=== PATIENT | male | born 1960 | race Caucasian/White ===

== ENCOUNTER → 2020-10-29 14:45 | Outpatient (BNVA) | payer BC, SELFPAY | PROVIDERS: Referring Provider Student in an Organized Health Care Education/Training Program; Visit Provider Orthopaedic Surgery | DX: M25.519 Pain in unspecified shoulder (principal); M75.101 Unspecified rotator cuff tear or rupture of right shoulder, not specified as traumatic; M12.811 Other specific arthropathies, not elsewhere classified, right shoulder | CPT/HCPCS: 73030 ==

== ENCOUNTER 2021-03-11 14:28 | Inpatient (IN) | payer BC, SELFPAY ==
[2021-03-11] VITALS (15 sets, daily range): BP systolic 129–180; BP diastolic 65–114; PULSE 38–72; RESP 14–20; TEMP 36.6; O2SAT 98–100; BMI 29.6
--- NOTE | 2021-03-11 14:38 | XR_ITS ---
WS: [id number] PORTABLE CHEST HISTORY: bradycardia, syncope COMPARISON: None available. Pacer pads over the mid LEFT lung. Mild hyperexpansion. No pneumonia. Normal vasculature. No pleural effusion or pneumothorax. Cardiac size: Mildly enlarged cardiac silhouette. Mediastinum/Aorta: Mild atherosclerosis aorta. Lytic changes involving the distal RIGHT clavicle. There is also abnormal appearance of the humeral h ead on the RIGHT. Subchondral cystic changes with loss of the normal cartilage. These findings were p reviously described on 10/29/2020. XR/XR chest 1V portable [id number] IMPRESSION: 1. No acute cardiopulmonary disease. 2. Again noted is a lytic destructive process involving the distal RIGHT clavi joel and the RIGHT humeral head. This has been previously described and may have improved since the prior study of 10/29/2020.
--- NOTE | 2021-03-11 14:39 | ECG_ITS ---
[facility] Test Date: 2021-03-11 Pat Name: Kyree Wilkerson Department: Room: Gender: Male Orientation And Mobility Specialist: : 1960 Requested By: Neil Francois Order Number: [id number] Hanley MD: Mercy Jane M.D. Measurements Intervals [place] Rate: 70 P: SD: QRS: 115 QRSD: 170 T: -63 QT: 492 QTc: 532 Interpretive Statements Sinus rhythm with a first-degree AV block RIGHT AXIS DEVIATION [QRS AXIS > 100] LEFT BUNDLE BRANCH BLOCK [120+ ms QRS DURATION, 80+ ms Q/S IN V1/V2, 85+ ms R IN I/aVL/V5/V6] No previous ECG available for comparison Electronically Signed On 03-13-2021 0:08:28 AUTO BRAKE TECHNICIAN by Mercy Jane M.D. [id number]
--- NOTE | 2021-03-11 14:55 | ED_ITS ---
HPI - Syncope General: Chief Complaint: ER Hold Stated Complaint: LOW HEART RATE, PASSING OUT Time Seen by Provider: 03/11/21 14:55 History of Present Illness: HPI narrative: Mr. Wilkerson is a 60-year-old gentleman with significant past medical history of hypertension, hyperlipidemia, atrial fibrillation, CAD status post PCI on chronic anticoagulation who presents emergency department due to syncope and low heart rate. He reportedly was well controlled at his baseline health until 02/19. He underwent cardiac catheterization in [place] as part of preoperative evaluation with planned maze, ASD repair, and aortic valve replacement planned to be done in [facility]. Since PCI he has had recurrent episodes of syncope and difficulty controlling his heart rate. Other than adding Plavix he did not have any additional medications changed. He is on digoxin and took 1 or 2 extra over the past week or so. Intensity of symptoms when present is m oderate to severe. Course has persisted. Denies known provoking factors. No other specific changes in health, exacerbating, relieving factors identified. Onset (ago): week(s) Description of event: other Prodromal symptoms: lightheaded Injuries sustained associated with event: none Associated symptoms: Reports lightheadedness and short of breath History: history of CAD and other Review of Systems General: Reports: 10 or more systems reviewed and unremarkable except in HPI and below Card: Reports: lightheadedness [facility] ED PFSH: Medical History (Updated 03/11/21 @ 21:12 by Solo Harding MD) Afib Anxiety Aortic aneurysm Gout Hyperlipidemia Hypertension Migraine Surgical History History of arthroscopic knee surgery History of cardiac radiofrequency ablation History of open heart surgery History of PTCA Family History (Updated 03/11/21 @ 21:11 by Solo Harding MD) Mother Hypertension Diabetes Atrial fibrillation Social History (Updated 03/11/21 @ 21:11 by Solo Harding MD) Smoking and tobacco status: never smoked Alcohol intake: current Alcohol intake frequency: few times a month Physical Exam Const: COMMON NORMALS: alert GENERAL APPEARANCE: cooperative and well developed HENMT: COMMON NORMALS: normocephalic and atraumatic HEAD & SCALP: normocephalic and atraumatic THROAT: posterior oropharynx normal Eye: COMMON NORMALS: conjunctivae normal CONJUNCTIVA: Yes conjunctivae normal SCLERA: sclerae normal Neck/C-Spine: COMMON NORMALS: supple GENERAL: Yes trachea midline Resp: COMMON NORMALS: normal respiratory effort EFFORT & INSPECTION: Yes able to speak in complete sentences Cardio: RATE: bradycardic RHYTHM: abnormal rhythm irregularly irregular OTHER: No peripheral edema, normal peripheral perfusion GI: COMMON NORMALS: Soft to palpation PALPATION: Yes Soft to palpation and No Tenderness to palpation present (GI) PERCUSSION: normal to percussion Extremity: GENERAL: Yes normal exam except as noted and No edema Neuro: COMMON NORMALS: moves all extremities SENSORIUM/ORIENTATION: Yes alert and No Orientation impaired OTHER: No focal neurologic deficits Psych: COMMON NORMALS: mental status grossly normal and Normal thought process present THOUGHT PROCESS: Normal thought process present Course ED course: - Patient was seen and evaluated by me at bedside - Patient placed on cardiac monitors, IV access obtained - Initial evaluation notable for bradycardia with adequate blood pressure. - Labs notable for no leukocytosis. Metabolic panel with mild evidence of dehydration. Delta troponin negative. Free T4 normal. Digoxin level within normal limits. - Imaging notable for no acute cardiopulmonary process, lytic lesion again noted - Given high degree of medical complexity cardiology was consulted for assistance in management and evaluated patient in the emergency department. - Upon serial reexamination after treatment the patient was similar to mildly improved - Based on patient history, evaluation, labs, and imaging as interpreted the most likely cause of the patient's condition is symptomatic bradycardia - The results of ED evaluation were discussed with the patient including plan for admission due to requirement for level of care not available if discharged to prevent significant worsening/deterioration. - Hospitalist service contacted and agreed admit patient - Patient was admitted without further deterioration or significant events. Note: Click bubbles or prepopulated staton in note writing are used for assistance with data collection and billing and are inherently more limited than narrative and other text portions of this note. Please use narrative for additional clinical history and defer to narrative/free test for any case of contradictory information. If information appears in only free text or click bubble it should be considered present or absent as reported. Please contact note telegraphic typewriter operator for clarifications of clinical information or contradictory information. MDM is a brief summary, contradictory or erroneous seeming information should be clarified and full note should be reviewed. Vital Signs: Vital signs: Vital Signs Temperature 98.4 F 03/12/21 16:47 Pulse Rate 68 03/12/21 16:47 Respiratory Rate 16 03/12/21 16:47 Blood Pressure 163/91 03/12/21 16:47 Pulse Oximetry 99 03/12/21 16:47 MDM - Syncope MDM Narrative Medical decision making narrative: 60-year-old gentleman with complex past cardiac history and new onset symptomatic bradycardia resulting in recurrent syncope after a cardiac cath and stent deployment on 02/19. Patient found to be bradycardiac with maintained blood pressure in the emergency department. Heart rates varied as low as mid 20s and he did have some multi second sinus pauses. Cardiology evaluated the patient in the emergency department, no acute intervention recommended other than holding medications and intervention would be indicated if patient conditions worsens. There is no obvious etiology based on laboratory studies for the patient's condition. Patient admitted for further definitive management and reevaluation. Medical Records Attestation: I reviewed the patient's medical records. Lab Data Attestation: I reviewed the patient's lab results. Result diagrams: 03/12/21 03:42 03/12/21 03:42 Labs: Radiology Impressions Chest X-Ray 03/11/21 14:38 IMPRESSION: 1. No acute cardiopulmonary disease. 2. 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 This has been previously described and may have improved since the prior study of 10/29/2020. Laboratory Results WBC 7.1 10^3/uL (4.0-10.0) 03/11/21 15:00 RBC 5.11 10^6/uL (4.1-5.3) 03/11/21 15:00 Hgb 13.3 g/dL (11.7-16.6) 03/11/21 15:00 Hct 43.5 % (42.0-52.0) 03/11/21 15:00 MCV 85.1 fl (80-94) 03/11/21 15:00 MCH 26.0 pg (28.0-34.0) L 03/11/21 15:00 MCHC 30.6 g/dL (30.0-36.0) 03/11/21 15:00 RDW 17.0 % (12.1-15.1) H 03/11/21 15:00 Plt Count 233 10^3/cmm (130-400) 03/11/21 15:00 MPV 9.2 fL (7.4-10.4) 03/11/21 15:00 Neut % (Auto) 73.0 % 03/11/21 15:00 Lymph % (Auto) 16.1 % 03/11/21 15:00 Schleicher % (Auto) 9.1 % 03/11/21 15:00 Eos % (Auto) 0.4 % 03/11/21 15:00 Baso % (Auto) 0.4 % 03/11/21 15:00 Neut # (Auto) 5.21 10^3/uL (1.8-7.7) 03/11/21 15:00 Lymph # (Auto) 1.2 10^3/uL (0.8-4.8) 03/11/21 15:00 Schleicher # (Auto) 0.7 10^3/uL (0.2-0.9) 03/11/21 15:00 Eos # (Auto) 0.0 10^3/uL (0.0-0.8) 03/11/21 15:00 Baso # (Auto) 0.0 10^3/uL (0.0-0.1) 03/11/21 15:00 Nucleated RBC % (auto) 0 % 03/11/21 15:00 Nucleated RBCs # 0.0 /100WBC 03/11/21 15:00 PT 25.30 SECONDS (12.1-14.9) H 03/11/21 15:00 INR 2.24 (0.8-1.2) H 03/11/21 15:00 Sodium 133 mmol/L (136-145) L 03/11/21 15:00 Potassium 5.0 mmol/L (3.5-5.1) 03/11/21 15:00 Chloride 98 mmol/L (98-107) 03/11/21 15:00 Carbon Dioxide 21 mmol/L (22-29) L 03/11/21 15:00 Anion Gap 19.0 (5-19) 03/11/21 15:00 BUN 19 mg/dL (8-23) 03/11/21 15:00 Creatinine 1.4 mg/dL (0.7-1.2) H 03/11/21 15:00 GFR Calculation 51.7 mL/min (90-130) L 03/11/21 15:00 Glucose 109 mg/dL (65-115) 03/11/21 15:00 Calculated Osmolality 279 mOsm/kg (285-295) L 03/11/21 15:00 Calcium 8.8 mg/dL (8.5-10.5) 03/11/21 15:00 Magnesium 2.0 mg/dL (1.7-2.3) 03/11/21 15:00 Total Bilirubin 0.7 mg/dL (0.15-1.2) 03/11/21 15:00 AST 43 U/L (0-40) H 03/11/21 15:00 ALT 30 U/L (0-41) 03/11/21 15:00 Alkaline Phosphatase 108 IU/L (40-130) 03/11/21 15:00 Troponin T Baseline 23 ng/L (0-15) H 03/11/21 15:00 Troponin T 120 Minute 21.48 ng/L (0-15) H 03/11/21 17:05 Delta Troponin T -1.52 ABS# (0-10) L 03/11/21 17:05 Troponin T Hi Sens 6Hr 24.78 ng/L (0-15) H 03/11/21 20:38 Troponin T Hi Sens 6Hr Delta 1.78 ng/L (0-12) 03/11/21 20:38 Total Protein 7.2 g/dL (6.6-8.7) 03/11/21 15:00 Albumin 4.4 g/dL (3.5-5.2) 03/11/21 15:00 Globulin 2.8 g/dL (1.3-4.6) 03/11/21 15:00 TSH 4.67 uIU/mL (0.27-4.20) H 03/11/21 15:00 Free T4 1.38 ng/dL (0.82-1.77) 03/11/21 15:00 Digoxin 1.2 ng/mL (0.6-1.2) 03/11/21 15:00 EKG Data EKG 1: Interpretation: Twelve-lead EKG shows a regular rhythm at a rate of 70. TN interval not present. QRS duration 170. QTc 513. Right [place] deviation Interpretation: Ventricular or junctional rhythm. Bundle branch block. EKG 2: Attestation: I personally reviewed and interpreted this EKG as follows: EKG interpretation date: 03/11/21 EKG interpretation time: 15:25 Interpretation: Twelve-lead EKG shows a regular rhythm at a rate of 43. TN interval not present. QRS duration 122. QTc 437. Normal [place]. . Interpretation: Junctional versus ventricular rhythm. Bradycardia. EKG 3: Attestation: I personally reviewed and interpreted this EKG as follows: EKG interpretation date: 03/11/21 EKG interpretation time: 17:40 Interpretation: Twelve-lead EKG shows a regular rhythm at a rate of 37. TN interval not present. QRS duration 129. QTc 461. Normal [place]. Interpretation: Junctional versus ventricular rhythm. Bradycardia. Critical Care Time Critical Care Time: Critical Care Time: Yes Total Critical Care Time: 35 Attestation: Due to a high probability of clinically significant, possibly life threatening deterioration, the patient required my highest level of attention and preparedness to intervene emergently and I personally spent this critical care time directly and personally managing the patient. This critical care time included obtaining a history; examining the patient; pulse oximetry; ordering and review of laboratory and imaging studies; arranging urgent treatment with development of a management plan; evaluation of patient's response to treatment; frequent reassessment; and, discussions with other providers as applicable. It was exclusive of separately billable procedures. Discharge Plan Discharge Patient Disposition: Admitted As Inpatient Admit Provider: Solo Harding Clinical Impression: Symptomatic bradycardia, Syncope due to orthostatic hypotension Condition: Stable Discharge Diet: Usual diet Discharge Activity: Resume usual activity Coding Level of Care Code ED Machine Worker for Chg Fwd Exam Comprehensive
[2021-03-11 15:13] LABS: Basophils % 0.4 %; Eosinophils % 0.4 %; Hematocrit 43.5 % (42.0-52.0); Hemoglobin 13.3 g/dL (11.7-16.6); Lymphocytes # 1.2 10^3/uL (0.8-4.8); Lymphocytes % 16.1 %; Mean Corpuscular HGB Conc 30.6 g/dL (30.0-36.0); Mean Corpuscular Volume 85.1 fl (80-94); Mean Platelet Volume 9.2 fL (7.4-10.4); Monocytes # 0.7 10^3/uL (0.2-0.9); Monocytes % 9.1 %; Neutrophils # 5.21 10^3/uL (1.8-7.7); Nucleated Red Blood Cells % 0 %; Platelet Count 233 10^3/cmm (130-400); Red Blood Count 5.11 10^6/uL (4.1-5.3); White Blood Count 7.1 10^3/uL (4.0-10.0)
--- NOTE | 2021-03-11 15:31 | PC.NURSE ---
PATIENT ZOLL PADS ATTACHED AND CART BROUGHT INTO ROOM. PATIENT ON ZOLL AND MONITORING.
[2021-03-11 15:33] LABS: INR 2.24 (0.8-1.2)
[2021-03-11 15:39] LABS: Troponin(5th) Baseline 23 ng/L (0-15)
[2021-03-11 15:42] LABS: Digoxin 1.2 ng/mL (0.6-1.2)
[2021-03-11 15:48] LABS: Alanine Aminotransferase 30 U/L (0-41); Albumin Level 4.4 g/dL (3.5-5.2); Alkaline Phosphatase 108 IU/L (40-130); Aspartate Amino Transferase 43 U/L (0-40); Blood Urea Nitrogen 19 mg/dL (8-23); Calcium 8.8 mg/dL (8.5-10.5); Carbon Dioxide 21 mmol/L (22-29); Chloride 98 mmol/L (98-107); Globulin 2.8 g/dL (1.3-4.6); Glomerular Filtration Rate 51.7 mL/min (90-130); Glucose 109 mg/dL (65-115); Osmolality Calculated 279 mOsm/kg (285-295); Sodium 133 mmol/L (136-145); Thyroid Stimulating Hormone 4.67 uIU/mL (0.27-4.20); Total Bilirubin 0.7 mg/dL (0.15-1.2); Total Protein 7.2 g/dL (6.6-8.7)
[2021-03-11 16:51] LABS: Free T4 Free Thyroxine 1.38 ng/dL (0.82-1.77)
[2021-03-11] MEDS: morphine 4 mg/mL SDV 1 mL IVP (16:55)
[2021-03-11] MEDS: aspirin 81 mg Chew Tablet 324 MG PO (16:56)
--- NOTE | 2021-03-11 16:56 | ECG_ITS ---
[facility] Test Date: 2021-03-11 Pat Name: Kyree Wilkerson Department: Room: Gender: Male Building Associate: : 1960 Requested By: Neil Francois Order Number: [id number] Hanley MD: Ericka Mcdonald M.D. Measurements Intervals [place] Rate: 43 P: AR: QRS: -2 QRSD: 122 T: 124 QT: 493 QTc: 417 Interpretive Statements JUNCTIONAL RHYTHM MODERATE INTRAVENTRICULAR CONDUCTION DELAY [110+ ms QRS DURATION] ST DEVIATION AND MODERATE T-WAVE ABNORMALITY, CONSIDER ANTEROLATERAL ISCHEMIA [-0.1+ mV T-WAVE IN V3-V6] Compared to ECG 03/11/2021 14:45:17 Intraventricular conduction delay now present T-wave abnormality now present Possible ischemia now present Right-axis deviation no longer present Left bundle-branch block no longer present Electronically Signed On 03-11-2021 22:11:35 WIRE WRAPPING MACHINE OPERATOR by Ericka Mcdonald M.D. [id number]
[2021-03-11 17:48] LABS: Troponin 5 2HR 21.48 ng/L (0-15); Troponin 5 2HR Delta -1.52 ABS# (0-10)
[2021-03-11] MEDS: atropine 0.1 mg/mL Syr 10 mL 0.5 MG IVP (18:50)
--- NOTE | 2021-03-11 19:17 | P.CONIM_ITS ---
Providers/Reason For Consult Consulting Physician/Specialty*: KATHY Jane MD/cardiology Reason for Consult*: Patient with recurrent episodes of near syncope/bradycardia/atrial fibrillation Requesting Physician: Dr. Neil Francois History of Present Illness History of Present Illness Kyree Wilkerson is a 60 year old male, presented to the emergency room today with complaints of recurrent episodes of near syncope. Patient has a history of ather osclerotic heart disease, chronic atrial fibrillation, ASD repair and aortic valve stenosis. This patient has a history of chronic intermittent atrial fibrillation. He is awaiting surgery for his ASD closure, possible aortic valve replacement and maze procedure at the [facility] in [place]. As a preoperative work-up, he had a cardiac catheterization by Dr. Kyree Mcdonnell at the [facility]. He apparently had a PCI with stenting in one of the arteries. Details are not available. Because of the stent placement, the surgical intervention was postponed-according to the patient and his family. He had a 2 radiofrequency ablation for the atrial fibrillation. He also had a total of 4 electrical cardioversion for symptomatic arrhythmia. The most recent cardioversion was done on 07 February last year. Following the cardioversion, he was placed on amiodarone. He also been taking long-acting metoprolol 50 mg twice daily and digoxin on a as needed basis. He also was given metoprolol tartrate to be taken on a as needed basis for uncontrolled heart rate by his primary care provider. The cervical cardioversion was unsuccessful. He has been having episodes of palpitations with a heart rate in the 150s and 160s. For that reason, he was taking digoxin and the short-acting metoprolol on a as needed basis. He denies any chest pain or chest tightness. No unusual shortness of breath. He had a PCI's in the past. These details are not available. Patient was found to have heart rate in the 20s at home. He is a mail delivery supervisor. He had an several episodes of near syncope in his vehicle. According to him, he will pull out and parked the car while having dizziness or near syncopal spells. Because of the recurrent episodes, he was brought to the emergency room. He never had any complete loss of consciousness. He never had similar episodes in the past. The first episode of near syncope happened around 1030 this morning. Patient has a history of high blood pressure and dyslipidemia. Also history of BPH. No history for any CVA or peripheral artery disease. No history for diabetes. No bleeding disorders. He is on long-term oral anticoagulation with the Coumadin. Review of Systems Narrative: CONSTITUTIONAL: No fever or chills. EYES: No blurring of vision or other visual disturbances lately. ENT: No hoarseness of voice, auditory disturbances or sore throat. CARDIOVASCULAR: As mentioned above. RESPIRATORY: No significant cough. GASTROINTESTINAL: No hematemesis or melena. GENITOURINARY: No dysuria or hematuria. INTEGUMENTARY: No skin rashes or history of skin cancer. NEURO: Several episodes of near syncope as mentioned above. PSYCHIATRIC: No history of psychosis or major depression. HEMATOLOGIC: No bleeding disorders or significant anemia. ENDOCRINE: No history of polyuria or polydipsia. MUSCULOSKELETAL: No recent joint pain or swelling. ALLERGY/IMMUNOLOGY: As mentioned above. Medications/Allergies Home Medications Medication Instructions Recorded Confirmed Last Taken Type allopurinol 300 mg tablet 300 mg PO BEDTIME 10/29/20 03/12/21 Unknown History alprazolam 0.25 mg tablet 0.25 mg PO BID PRN 10/29/20 03/12/21 Unknown History ascorbate calcium (vitamin C) 500 500 mg PO QAM 10/29/20 03/12/21 Unknown History mg tablet lansoprazole 15 mg capsule,delayed 15 mg PO DAILY 10/29/20 03/12/21 Unknown History release metoprolol succinate 100 mg 50 mg PO BID 10/29/20 03/12/21 Unknown History tablet,extended release 24 hr metoprolol tartrate 50 mg tablet 50 mg PO BID PRN 10/29/20 03/12/21 Unknown History rosuvastatin 20 mg tablet (Crestor) 20 mg PO BEDTIME 10/29/20 03/12/21 Unknown History tamsulosin 0.4 mg capsule 0.4 mg PO BEDTIME 10/29/20 03/12/21 Unknown History warfarin 5 mg tablet See Rx Instructions .ROUTE .COMPLEX 10/29/20 03/12/21 Un known History Fish Oil 1 cap PO QAM 03/12/21 03/12/21 Unknown History Glucosamine 1 cap PO QAM 03/12/21 03/12/21 Unknown History Vitamin B-12 1 tab PO QAM 03/12/21 03/12/21 Unknown History amiodarone 200 mg tablet 200 mg PO BEDTIME 03/12/21 03/12/21 Unknown History aspirin 81 mg tablet,delayed 81 mg PO QAM 03/12/21 03/12/21 Unknown History release clopidogrel 75 mg tablet 75 mg PO QAM 03/12/21 03/12/21 Unknown History coenzyme Q10 100 mg capsule 100 mg PO QAM 03/12/21 03/12/21 Unknown History (CoQ-10) losartan 50 mg tablet 25 mg PO BEDTIME 03/12/21 03/12/21 Unknown History magnesium 1 tab PO QAM 03/12/21 03/12/21 Unknown History meloxicam 15 mg tablet 15 mg PO QAM 03/12/21 03/12/21 Unknown History multivitamin 1 tab PO QAM 03/12/21 03/12/21 Unknown History potassium gluconate 595 mg (99 mg) 595 mg PO QAM 03/12/21 03/12/21 Unknown History tablet turmeric 400 mg capsule 400 mg PO QAM 03/12/21 03/12/21 Unknown History zinc 50 mg tablet 50 mg PO QAM 03/12/21 03/12/21 Unknown History Allergies Allergy/AdvReac Type Severity Reaction Status Date / Time No Known Allergies Allergy Verified 03/12/21 08:59 PFSH Acute PFSH: Medical History (Updated 03/11/21 @ 21:12 by Solo Harding MD) Afib Anxiety Aortic aneurysm Gout Hyperlipidemia Hypertension Migraine Surgical History History of arthroscopic knee surgery History of cardiac radiofrequency ablation History of open heart surgery History of PTCA Family History (Updated 03/11/21 @ 21:11 by Solo Harding MD) Mother Hypertension Diabetes Atrial fibrillation Social History (Updated 03/11/21 @ 21:11 by Solo Harding MD) Smoking and tobacco status: never smoked Alcohol intake: current Alcohol intake frequency: few times a month Substance/Drug Use: never Vitals/I&O/Wt Last Vital Signs Temp 97.8 F 03/11/21 14:41 Pulse 38 L 03/11/21 18:00 Resp 15 03/11/21 18:00 BP 134/86 03/11/21 18:00 Pulse Ox 98 03/11/21 18:00 Weight last 48 hrs Weight 195 lb Physical Exam Narrative: EXAM NARRATIVE: GENERAL: The patient is alert and oriented times three. Not in any acute distress. HEENT: No significant pallor, icterus or lymphadenopathy. The pupils are reactant to light. Oral cavity: There are no mucous membrane lesions. Funduscopic examination: Fundus is not visualized NECK: Trachea appears to be central. No masses noted. No JVD or thyromegaly appreciated. No carotid bruit. RESPIRATORY: Chest is symmetrical. No intercostals muscle retraction or any accessory muscle activation. There is no chest wall tenderness. Breath sounds are heard bilaterally. No rales or rhonchi heard. No evidence of any consolidation. BREASTS: Deferred. HEART: The PMI could not be palpated. No palpable precordial events. First heart sound is variable. Second heart sound is normal. No S3 or S4 heard. No pericardial rub or any click heard. Systolic murmur grade 3/6 in the left sternal border. Prominent second heart sound. No diastolic murmurs. ABDOMEN: No vessel pulsations or distention. No tenderness. No organomegaly appreciated. No abdominal bruit. Bowel sounds are normally heard. : Deferred. RECTAL: Deferred. LYMPHATIC: No lymphadenopathy noted in the neck or groin. EXTREMITIES: No edema or cyanosis. No clubbing. The pulses are symmetrical bilaterally. The radial, femoral, dorsalis pedis and the posterior tibial pulses are palpated and found to be in good volume and amplitude. MUSCULOSKELETAL: Gait is normal. There is no joint deformity or swelling noted. No joint tenderness or any effusion. The shoulder and hip joints appear to have normal range of motion. SKIN: There are no significant scars or skin rash noted. NEUROPSYCHIATRIC: The patient is alert and oriented x3. Appears to be in a good mood. The higher functions are grossly within normal limits. No tremors or rigidity noted. Data : 03/12/21 03:42 03/12/21 03:42 Other Labs: Laboratory Last Values WBC 7.1 10^3/uL (4.0-10.0) 03/11/21 15:00 RBC 5.11 10^6/uL (4.1-5.3) 03/11/21 15:00 Hgb 13.3 g/dL (11.7-16.6) 03/11/21 15:00 Hct 43.5 % (42.0-52.0) 03/11/21 15:00 MCV 85.1 fl (80-94) 03/11/21 15:00 MCH 26.0 pg (28.0-34.0) L 03/11/21 15:00 MCHC 30.6 g/dL (30.0-36.0) 03/11/21 15:00 RDW 17.0 % (12.1-15.1) H 03/11/21 15:00 Plt Count 233 10^3/cmm (130-400) 03/11/21 15:00 MPV 9.2 fL (7.4-10.4) 03/11/21 15:00 Neut % (Auto) 73.0 % 03/11/21 15:00 Lymph % (Auto) 16.1 % 03/11/21 15:00 [place] % (Auto) 9.1 % 03/11/21 15:00 Eos % (Auto) 0.4 % 03/11/21 15:00 Baso % (Auto) 0.4 % 03/11/21 15:00 Neut # (Auto) 5.21 10^3/uL (1.8-7.7) 03/11/21 15:00 Lymph # (Auto) 1.2 10^3/uL (0.8-4.8) 03/11/21 15:00 [place] # (Auto) 0.7 10^3/uL (0.2-0.9) 03/11/21 15:00 Eos # (Auto) 0.0 10^3/uL (0.0-0.8) 03/11/21 15:00 Baso # (Auto) 0.0 10^3/uL (0.0-0.1) 03/11/21 15:00 Nucleated RBC % (auto) 0 % 03/11/21 15:00 Nucleated RBCs # 0.0 /100WBC 03/11/21 15:00 PT 25.30 SECONDS (12.1-14.9) H 03/11/21 15:00 INR 2.24 (0.8-1.2) H 03/11/21 15:00 Sodium 133 mmol/L (136-145) L 03/11/21 15:00 Potassium 5.0 mmol/L (3.5-5.1) 03/11/21 15:00 Chloride 98 mmol/L (98-107) 03/11/21 15:00 Carbon Dioxide 21 mmol/L (22-29) L 03/11/21 15:00 Anion Gap 19.0 (5-19) 03/11/21 15:00 BUN 19 mg/dL (8-23) 03/11/21 15:00 Creatinine 1.4 mg/dL (0.7-1.2) H 03/11/21 15:00 GFR Calculation 51.7 mL/min (90-130) L 03/11/21 15:00 Glucose 109 mg/dL (65-115) 03/11/21 15:00 Calculated Osmolality 279 mOsm/kg (285-295) L 03/11/21 15:00 Calcium 8.8 mg/dL (8.5-10.5) 03/11/21 15:00 Magnesium 2.0 mg/dL (1.7-2.3) 03/11/21 15:00 Total Bilirubin 0.7 mg/dL (0.15-1.2) 03/11/21 15:00 AST 43 U/L (0-40) H 03/11/21 15:00 ALT 30 U/L (0-41) 03/11/21 15:00 Alkaline Phosphatase 108 IU/L (40-130) 03/11/21 15:00 Troponin T Baseline 23 ng/L (0-15) H 03/11/21 15:00 Troponin T 120 Minute 21.48 ng/L (0-15) H 03/11/21 17:05 Delta Troponin T -1.52 ABS# (0-10) L 03/11/21 17:05 Total Protein 7.2 g/dL (6.6-8.7) 03/11/21 15:00 Albumin 4.4 g/dL (3.5-5.2) 03/11/21 15:00 Globulin 2.8 g/dL (1.3-4.6) 03/11/21 15:00 TSH 4.67 uIU/mL (0.27-4.20) H 03/11/21 15:00 Free T4 1.38 ng/dL (0.82-1.77) 03/11/21 15:00 Digoxin 1.2 ng/mL (0.6-1.2) 03/11/21 15:00 EKG 1: My Interpretation: Junctional rhythm with a rate of 43 bpm. [address]ons[address]CD. Nons[address]-T changes in the anterolateral leads. Some features of LVH. EKG computer-generated impression: Chest X-Ray 03/11/21 14:38 IMPRESSION: 1. No acute cardiopulmonary disease. 2. 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 This has been previously described and may have improved since the prior study of 10/29/2020. A&P Assessment and plan (1) Near syncope: Patient has recurrent episodes of near syncope most likely from the bradycardia. Most likely this is related to the AV salvatore blocking agents that the patient has been using more often lately. Currently seems to be stable hemodynamically. He i s responding to IV atropine. I may hold off on any intervention at this point. We will be holding onto the AV salvatore blocking agents at this point. We will be closely monitoring on telemetry. Status: Acute (2) Intermittent atrial fibrillation: Patient is on long-term oral anticoagulation. on a.c. continued. Status: Acute (3) Symptomatic bradycardia: I may hold off on the metoprolol. He may not require a transvenous per temporary pacer at this point. Depending on his clinical progress, further recommendations will be made. Status: Acute (4) Atherosclerotic heart disease: Patient had multiple PCI's in the past. He seems to be stable with no specific cardiac symptoms at this point. Status: Acute (5) Benign essential HTN: For better control of blood pressure, I may start him on hydralazine 25 mg p.o. 3 times daily. May restart on the amiodarone tomorrow. Also may start on the long-acting beta-blocke cautiously tomorrow. Status: Acute (6) Dyslipidemia: Continue on the current medications. Status: Acute Plan Other problems are ASD We will try to get the medical records from [place]. We will give him atropine 0.5 mg for heart rate below 35 and sustained for more than 2 minutes. Based on the patient's clinical progress, further recommendations will be made. I may start him on hydralazine 25 mg p.o. 3 times daily. Thank you for the opportunity to evaluate this patient and make these recommendation Consult Attestations Medical Necessity Statement: Patient is to be closely monitored on telemetry. Coding Level of Care Code Acute Investor Relations Manager for Chg Shayna Medical Decision Making High Complexity Diagnoses Near syncope R55 Intermittent atrial fibrillation I48.0 Symptomatic bradycardia R00.1 Atherosclerotic heart disease I25.10 Benign essential HTN I10 Dyslipidemia E78.5
[2021-03-11] MEDS: hyDRALAzine 25 mg Tablet PO (20:54)
--- NOTE | 2021-03-11 20:56 | ECG_ITS ---
[facility] Test Date: 2021-03-11 Pat Name: Kyree Wilkerson Department: Room: Gender: Male Head Librarian: : 1960 Requested By: Neil Francois Order Number: [id number] Hanley MD: Ericka Mcdonald M.D. Measurements Intervals [place] Rate: 37 P: LA: QRS: 5 QRSD: 121 T: 41 QT: 544 QTc: 432 Interpretive Statements JUNCTIONAL RHYTHM MODERATE INTRAVENTRICULAR CONDUCTION DELAY [110+ ms QRS DURATION] ST DEVIATION AND MODERATE T-WAVE ABNORMALITY, CONSIDER ANTERIOR ISCHEMIA [-0.1+ mV T-WAVE IN V3/V4] CRITICAL TEST RESULT Compared to ECG 03/11/2021 15:22:33 No significant changes Electronically Signed On 03-11-2021 22:07:19 SINGLE FOLD MACHINE OPERATOR by Ericka Mcdonald M.D. [email or web address]
--- NOTE | 2021-03-11 21:02 | PM.HP ---
Providers/Chief Complaint Chief Complaint: LOW HEART RATE, PASSING OUT History of Present Illness Kyree Wilkerson is a 60 year old male with a past medical history of paroxysmal atrial fibrillation on Coumadin, metoprolol, with plans on Maze procedure, history of ASD, with reported recurrent leaking, requiring planned ASD repair, with aortic stenosis, with planned aortic valve replacement, all the surgeries will be done in [place] within a month, recent history of transesophageal echocardiogram with coronary angiogram at [place], with stent placement, placed on Plavix, resulting in delaying of his surgery, hypertension, dyslipidemia, anxiety who presents [facility] due to presyncope. Patient tells me that yesterday, he had episodes of A. fib, he took 100 metoprolol succinate twice and 150 mg of his metoprolol tartrate which brought his heart rate is down. He was told by his primary care physician is that if his heart rates were elevated, he should take an extra metoprolol tart Ruiz for A. fib with RVR. This morning he woke up and he noticed that his heart rate on his pulse ox was 160, he felt chest palpitations, so he took his 100 of metoprolol succinate, and another 100 mg of his metoprolol tart Ruiz. He then started to feel lightheaded, dizzy, like he was going to pass out, but never fully passed out, no head trauma, felt diaphoretic, he felt as if he converted out out of normal normal sinus rhythm, however his lightheaded symptoms and presyncopal symptoms persisted. In the emergency room patient was found to have sinus bradycardia, heart rates as low as 20s, with a junctional rhythm, cardiology has been consulted, currently hemodynamically stable, heart rates in the 40s, sinus rhythm, junctional rhythm at times. Magnesium within normal limits. TSH mildly elevated. He takes digoxin at home, digoxin level 1.2, is not exactly sure how much digoxin he takes. He also takes amiodarone 200 mg once daily. Has not taken amiodarone. Baseline troponin is 23. Review of Systems Const: Denies: fever(s) or chills Eyes: Denies: change in vision ENMT: Denies: nasal congestion Card: Reports: lightheadedness and pre-syncope; Denies: chest pain, edema or dyspnea on exertion Resp: Denies: dyspnea or non-productive cough GI: Denies: abdominal pain, nausea, vomiting, heartburn, diarrhea, constipation, hematochezia or melena : Denies: flank pain, dysuria, urinary frequency, urinary urgency or hematuria Musc: Denies: neck pain, back pain or muscle weakness Skin/Breast: Denies: rash Neuro: Denies: headache(s), numbness in extremities, weakness in extremities, vertigo, confusion or Slurred speech present Endo: Denies: polyuria or polydipsia All/Imm: Denies: urticaria Medications/Allergies Home Medications Medication Instructions Recorded Confirmed Last Taken Type allopurinol 300 mg tablet 300 mg PO DAILY 10/29/20 10/29/20 Unknown History alprazolam 0.25 mg tablet 0.25 mg PO DAILY 10/29/20 10/29/20 Unknown History ascorbate calcium (vitamin C) 500 500 mg PO DAILY 10/29/20 10/29/20 Unknown History mg tablet lansoprazole 15 mg capsule,delayed 15 mg PO DAILY 10/29/20 10/29/20 Unknown History release meloxicam 15 mg tablet (Mobic) 15 mg PO DAILY #30 tab 10/29/20 10/29/20 Unknown Rx metoprolol succinate 100 mg 100 mg PO DAILY 10/29/20 10/29/20 Unknown History tablet,extended release 24 hr metoprolol tartrate 50 mg tablet 50 mg PO DAILY 10/29/20 10/29/20 Unknown History ushbh3-vgj-vzb-fish oil-coQ10 g PO 10/29/20 10/29/20 Unknown History 1,900 mg-640 mg-50 mg/2.5 gram oral pack potassium 99 mg tablet mg PO 10/29/20 10/29/20 Unknown History rosuvastatin 20 mg tablet (Crestor) 20 mg PO DAILY 10/29/20 10/29/20 Unknown History tamsulosin 0.4 mg capsule 0.4 mg PO DAILY 10/29/20 10/29/20 Unknown History turmeric 400 mg capsule mg PO 10/29/20 10/29/20 Unknown History warfarin 5 mg tablet 5 mg PO DAILY 10/29/20 10/29/20 Unknown History Allergies Allergy/AdvReac Type Severity Reaction Status Date / Time No Known Allergies Allergy Unverified 03/11/21 14:41 PFSH Acute PFSH: Medical History (Updated 03/11/21 @ 21:12 by Solo Harding MD) Afib Anxiety Aortic aneurysm Gout Hyperlipidemia Hypertension Migraine Surgical History History of arthroscopic knee surgery History of cardiac radiofrequency ablation History of open heart surgery History of PTCA Family History (Updated 03/11/21 @ 21:11 by Solo Harding MD) Mother Hypertension Diabetes Atrial fibrillation Social History (Updated 03/11/21 @ 21:11 by Solo Harding MD) Smoking and tobacco status: never smoked Alcohol intake: current Alcohol intake frequency: few times a month Substance/Drug Use: never Vitals/I&O/Wt Last Vital Signs Temp 97.8 F 03/11/21 14:41 Pulse 38 L 03/11/21 18:00 Resp 15 03/11/21 18:00 BP 134/86 03/11/21 18:00 Pulse Ox 98 03/11/21 18:00 Weight last 48 hrs Weight 88.451 kg Physical Exam Const: COMMON NORMALS: no acute distress and patient oriented x3 HENMT: COMMON NORMALS: normocephalic HEAD & SCALP: normocephalic Neck/C-Spine: COMMON NORMALS: no JVD Resp: COMMON NORMALS: normal respiratory effort, No retractions, No use of accessory muscles and clear to auscultation bilaterally AUSCULTATION: clear to auscultation bilaterally Cardio: COMMON NORMALS: no JVD, regular rhythm, S1 normal heart sound present and S2 normal heart sound present RATE: bradycardic RHYTHM: regular rhythm HEART SOUNDS: S1 normal heart sound present and S2 normal heart sound present GI: COMMON NORMALS: Normal to inspection, nondistended, normoactive bowel sounds present, Soft to palpation, non-tender, No hepatosplenomegaly present, no masses and no bruits PALPATION: Yes Soft to palpation and Yes No hepatosplenomegaly present Extremity: COMMON NORMALS: capillary refill normal, no clubbing, cyanosis or edema, no calf tenderness and no pedal edema Neuro: COMMON NORMALS: patient oriented x3 Psych: COMMON NORMALS: mental status grossly normal Data : 03/11/21 15:00 03/11/21 15:00 A&P Assessment and plan (1) Symptomatic bradycardia: Status: Acute (2) Atherosclerotic heart disease: Status: Acute (3) Intermittent atrial fibrillation: Status: Acute (4) Near syncope: Status: Acute (5) Afib: Status: Acute (6) Beta jorge toxicity: Status: Acute Plan Symptomatic bradycardia -Likely secondary to beta-jorge toxicity -However cannot rule out underlying sinus node dysfunction Plan: -Continue telemetry monitoring -Monitor for chest pain, monitor for bradycardia -Atropine 0.5 mg IV push every 5 minutes for symptomatic bradycardia -Currently is hemodynamically stable, no need for IV glucagon -Currently no need for external pacing -Full code -Warfarin for DVT prophylaxis, INR 2.24 acute kidney injury -1.4, likely secondary to hypotension, gentle IV hydration Elevated troponins -No chest pain complaints -Continue Coumadin, Plavix, statin -EKG shows junctional rhythm, nonspecific ST-T wave changes, LBBB -Recently have stent placed -Continue to monitor -Telemetry monitoring, cardiac echo Paroxysmal atrial fibrillation -Continue Coumadin 2.5 mg Tuesdays, , Saturdays, 5 mg rest of the days -Hold metoprolol tartrate, succinate, hold amiodarone, hold digoxin -Need to to bring in digoxin tomorrow to determine dosing he takes at home -Undergoing maze procedure within the month CAD status post stenting, continue Plavix Aortic valve stenosis, undergoing surgical intervention within the month ASD, undergoing surgical intervention within the month Attestations Medical Necessity Statement*: Patient requires hospitalization, inpatient, greater than 2 midnight for symptomatic bradycardia, XIN, laboratories, paroxysmal atrial fibrillation, Coding Level of Care Code New Pt Acute Shipfitters Supervisor for Chg Fwd Patient Type New History Comprehensive Exam Comprehensive Medical Decision Making High Complexity Diagnoses Symptomatic bradycardia R00.1 Atherosclerotic heart disease I25.10 Intermittent atrial fibrillation I48.0 Near syncope R55 Afib I48.91 Beta jorge toxicity Time Spent (min) 55
[2021-03-11 21:11] LABS: Troponin 5 6HR 24.78 ng/L (0-15)
[2021-03-11 21:15] LABS: Troponin 5 6HR Delta 1.78 ng/L (0-12)
[2021-03-11] MEDS: ondansetron 2 mg/ML SDV 2 mL 4 MG IVP (22:01)
[2021-03-12] VITALS (7 sets, daily range): BP systolic 146–166; BP diastolic 82–93; PULSE 53–70; RESP 16–21; TEMP 36.9–37; O2SAT 95–99
--- NOTE | 2021-03-12 01:45 | USCV_ITS ---
Kyree Wilkerson Age: 60 Gender: M : 1960 Exam Date: 03/12/2021 06:13 Ordering Phys: Solo Harding MD Technologist: [email or web address] Exam Location: [facility] – [place] Indication: SYNCOPE/BRADYCARDIA BP: 140 / 80 HR: 66 Rhythm: Atrial fibrillation Technical Quality: Adequate MEASUREMENTS (Male / Female) Normal Values 2D ECHO LV Diastolic Diameter PLAX 6.3 cm 4.2 - 5.9 / 3.9 - 5.3 cm LV Systolic Diameter PLAX 5.4 cm IVS Diastolic Thickness 1.1 cm 0.6 - 1.0 / 0.6 - 0.9 cm IVS Systolic Thickness 1.3 cm LVPW Diastolic Thickness 1.3 cm 0.6 - 1.0 / 0.6 - 0.9 cm LVPW Systolic Thickness 1.8 cm LVOT Diameter 2.0 cm LV Ejection Fraction 2D Teich 21.8 % LV Ejection Fraction MOD 2C 31.1 % LV Ejection Fraction 2C AL 29.0 % LA Diameter 4.3 cm LA Width 5.4 cm LA Height 6.9 cm RA Width 4.8 cm RA Height 6.8 cm Aorta at Sinotubular Diameter 3.0 cm M-MODE Aortic Annulus Diameter 3.5 cm LA Ao Ratio MM 1.3 MV E Point Septal Separation 3.3 cm DOPPLER AV Peak Velocity 356.7 cm/s LVOT Peak Velocity 70.0 cm/s AV Area Cont Eq vti 0.7 cm squared AV Area Cont Eq pk 0.6 cm squared MV Area PHT 8.5 cm squared Mitral E to A Ratio 1.8 MV E' Velocity 48.5 cm/s Mitral E to MV E' Ratio 11.5 Mitral E to LV E' Lateral Ratio 8.4 Mitral E to LV E' Septal Ratio 18.2 TR Peak Velocity 397.7 cm/s TR Peak Gradient 63.3 mmHg TV Peak E Velocity 141.0 cm/s Right Atrial Pressure 3.0 mmHg Pulmonary Artery Systolic Pressu 66.3 mmHg FINDINGS Left Ventricle Moderately dilated left ventricle. Moderately decreased left ventricular systolic function. Left ventricular ejection fraction is estimated at 30 % visually and 32% by modified biplane method. Grade II diastolic dysfunction, moderately elevated filling pressures. Moderate global hypokinesis with abnormal septal motion consistent with conduction abnormality. Right Ventricle Mildly increased right ventricular size. Moderately decreased right ventricular systolic function. Right ventricular systolic pressure 52 mmHg. Right Atrium Mildly increased right atrial size. Possible small atrial septal defect (not well seen on the study). Left Atrium Moderately increased left atrial size. Mitral Valve Structurally normal mitral valve. No mitral valve stenosis. Mild mitral valve regurgitation. Aortic Valve Markedly thickened and calcified aortic valve. Fixed right coronary cusp. Severe aortic valve stenosis, peak velocity 3.9 m/s, peak gradient 60 mmHg, mean gradient 34 mmHg, CHARLES 0.73 cm squared. Moderate to severe aortic valve regurgitation. Tricuspid Valve Structurally normal tricuspid valve. No tricuspid valve stenosis. Jdey-cc-irwhrore tricuspid valve regurgitation. Pulmonic Valve Structurally normal pulmonic valve. No pulmonary valve stenosis. Mild pulmonary valve regurgitation. Pericardium Trivial pericardial effusion. Aorta Normal size aortic root and proximal ascending aorta. Upper normal sized inferior vena cava with less than 50% respiratory variation. CONCLUSIONS 1. Moderately dilated left ventricle. Moderately decreased left ventricular systolic function. Left ventricular ejection fraction is estimated at 30 % visually and 32% by modified biplane method. Moderate global hypokinesis with abnormal septal motion consistent with conduction abnormality. Grade II diastolic dysfunction, moderately elevated filling pressures. 2. Mildly increased right ventricular size. Moderately decreased right ventricular systolic function. 3. Possible small atrial septal defect (not well seen on the study). 4. Severe aortic valve stenosis, peak velocity 3.9 m/s, peak gradient 60 mmHg, mean gradient 34 mmHg, CHARLES 0.73 cm squared. Moderate to severe aortic valve regurgitation. 5. Updo-hy-xskrprrx tricuspid valve regurgitation. 6. Moderate pulmonary hypertension with pulmonary artery pressure estimated at 52 mmHg. 7. No prior similar studies to compare. Ericka Mcdonald MD (Electronically Signed) Final Date: 12 March 2021 17:06 S
[2021-03-12] MEDS: warfarin 5 mg Tablet 2.5 MG PO (02:48)
[2021-03-12] MEDS: sodium chloride 0.9% 1,000 ML 50 ML IV (02:48)
[2021-03-12 03:54] LABS: Basophils % 0.2 %; Eosinophils % 0.2 %; Hematocrit 37.8 % (42.0-52.0); Hemoglobin 11.7 g/dL (11.7-16.6); Lymphocytes % 17.6 %; Mean Platelet Volume 9.3 fL (7.4-10.4); Monocytes # 0.6 10^3/uL (0.2-0.9); Monocytes % 10.3 %; Neutrophils # 4.19 10^3/uL (1.8-7.7); Neutrophils % 70.9 %; Nucleated Red Blood Cells % 0 %; Platelet Count 223 10^3/cmm (130-400); Red Cell Distribution Width 17.2 % (12.1-15.1); White Blood Count 5.9 10^3/uL (4.0-10.0)
[2021-03-12 04:08] LABS: INR 2.19 (0.8-1.2)
[2021-03-12 04:09] LABS: Estmated Average Glucose 108; Hemoglobin A1C 5.4 % (4.0-6.0)
[2021-03-12 04:15] LABS: Alanine Aminotransferase 28 U/L (0-41); Albumin Level 3.9 g/dL (3.5-5.2); Alkaline Phosphatase 85 IU/L (40-130); Aspartate Amino Transferase 34 U/L (0-40); Blood Urea Nitrogen 19 mg/dL (8-23); Calcium 8.9 mg/dL (8.5-10.5); Carbon Dioxide 19 mmol/L (22-29); Chloride 105 mmol/L (98-107); Globulin 2.7 g/dL (1.3-4.6); Glomerular Filtration Rate 76.2 mL/min (90-130); Glucose 99 mg/dL (65-115); Osmolality Calculated 286 mOsm/kg (285-295); Phosphorus 3.7 mg/dL (2.5-4.5); Sodium 137 mmol/L (136-145); Total Bilirubin 0.6 mg/dL (0.15-1.2); Total Protein 6.6 g/dL (6.6-8.7)
[2021-03-12 04:17] LABS: Chol HDL Ratio 3.05 mg/dL (1.0-5.00); Cholesterol 113 mg/dL (0-200); HDL Cholesterol 37 mg/dL (60-100); LDL Cholesterol Calculated 57 mg/dL (50-129); LDL HDL Ratio 1.54 RATIO (0.00-3.22); Triglycerides 95 mg/dL (0-150)
[2021-03-12 04:22] LABS: NT Pro B Type Natriuretic Pept 4543 pg/mL (0-125)
[2021-03-12] MEDS: hyDRALAzine 25 mg Tablet PO ×2 (05:50→14:14)
--- NOTE | 2021-03-12 08:45 | PC.NURSE ---
At 0700 , received report assumed care. No changes noted from report. Alert and oriented. Connected to Monitor
[2021-03-12] MEDS: clopidogrel 75 mg Tablet PO (08:49)
[2021-03-12] MEDS: tamsulosin 0.4 mg Capsule PO (08:49)
[2021-03-12] MEDS: famotidine 20 mg Tablet PO (08:49)
[2021-03-12] MEDS: atorvastatin 40 mg Tablet 80 MG PO (08:49)
[2021-03-12] MEDS: allopurinol 300 mg Tablet PO (08:49)
[2021-03-12] MEDS: amiodarone 200 mg Tablet PO (10:45)
[2021-03-12] MEDS: metoprolol succinate ER (24 HR) 50 mg Tablet PO (10:45)
--- NOTE | 2021-03-12 15:17 | PM.PN ---
Subjective Subjective: Interval history: The patient is feeling better. The heart rate seems to be improving. No new symptoms. Medications: Medication Review Details: Current Medications Acetaminophen (Acetaminophen 325 Mg Tablet) 650 mg PO Q6H PRN PRN Reason: Mild/Mod Pain Or Temp >/= 101 Allopurinol (Allopurinol 300 Mg Tablet) 300 mg PO DAILY [facility] Last Admin: 03/12/21 08:49 Dose: 300 mg Documented by: Amiodarone HCl (Amiodarone 200 Mg Tablet) 200 mg PO DAILY [facility] Last Admin: 03/12/21 10:45 Dose: 200 mg Documented by: Atorvastatin Calcium (Atorvastatin 40 Mg Tablet) 80 mg PO DAILY [facility] Last Admin: 03/12/21 08:49 Dose: 80 mg Documented by: Atropine Sulfate (Atropine 0.1 Mg/Ml Syr 10 Ml) 0.5 mg IVP ONCE PRN PRN Reason: HEART RATE < 40/MIN Clopidogrel Bisulfate (Clopidogrel 75 Mg Tablet) 75 mg PO DAILY [facility] Last Admin: 03/12/21 08:49 Dose: 75 mg Documented by: Famotidine (Famotidine 20 Mg Tablet) 20 mg PO BID [facility] Last Admin: 03/12/21 08:49 Dose: 20 mg Documented by: Hydralazine HCl (Hydralazine 25 Mg Tablet) 25 mg PO Q8H [facility] Last Admin: 03/12/21 14:14 Dose: 25 mg Documented by: Sodium Chloride (Sodium Chloride 0.9%) 1,000 mls @ 50 mls/hr IV .Q20H [facility] Last Admin: 03/12/21 02:48 Dose: 50 mls/hr Documented by: Metoprolol Succinate (Metoprolol Succinate Er (24 Hr) 50 Mg Tablet) 50 mg PO DAILY [facility] Last Admin: 03/12/21 10:45 Dose: 50 mg Documented by: Ondansetron HCl (Ondansetron 2 Mg/Ml Sdv 2 Ml) 4 mg IVP Q8H PRN PRN Reason: vomiting, or N/V if npo Tamsulosin HCl (Tamsulosin 0.4 Mg Capsule) 0.4 mg PO DAILY [facility] Last Admin: 03/12/21 08:49 Dose: 0.4 mg Documented by: Warfarin Sodium (Warfarin 5 Mg Tablet) 5 mg PO SuMoWeFr@1400 [facility] Warfarin Sodium (Warfarin 2.5 Mg Tablet) 2.5 mg PO TuThSa@1400 [facility] Vitals/I&O/Wt Last Vital Signs Temp 98.6 F 03/12/21 13:19 Pulse 69 03/12/21 13:19 Resp 18 03/12/21 13:19 BP 166/89 03/12/21 13:19 Pulse Ox 99 03/12/21 13:19 Weight last 48 hrs Weight 195 lb Physical Exam Narrative: EXAM NARRATIVE: GENERAL: The patient is alert and oriented times three. Not in any acute distress. HEENT: No significant pallor, icterus or lymphadenopathy. The pupils are reactant to light. Oral cavity: There are no mucous membrane lesions. NECK: Trachea appears to be central. No masses noted. No JVD or thyromegaly appreciated. No carotid bruit. RESPIRATORY: Chest is symmetrical. No intercostals muscle retraction or any accessory muscle activation. There is no chest wall tenderness. Breath sounds are heard bilaterally. No rales or rhonchi heard. No evidence of any consolidation. BREASTS: Deferred. HEART: Heart sounds are normal. No S3 or S4. No significant murmurs. ABDOMEN: No vessel pulsations or distention. No tenderness. No organomegaly appreciated. No abdominal bruit. Bowel sounds are normally heard. : Deferred. RECTAL: Deferred. LYMPHATIC: No lymphadenopathy noted in the neck or groin. EXTREMITIES: No edema or cyanosis. No clubbing. Peripheral pulses are full and fairly good volume and amplitude MUSCULOSKELETAL: No acute joint deformities or swelling SKIN: There are no significant scars or skin rash noted. NEUROPSYCHIATRIC: The patient is alert and oriented x3. Appears to be in a good mood. The higher functions are grossly within normal limits. No tremors or rigidity noted. Data : 03/12/21 03:42 03/12/21 03:42 Other Labs: Laboratory Last Values WBC 5.9 10^3/uL (4.0-10.0) 03/12/21 03:42 RBC 4.50 10^6/uL (4.1-5.3) 03/12/21 03:42 Hgb 11.7 g/dL (11.7-16.6) 03/12/21 03:42 Hct 37.8 % (42.0-52.0) L 03/12/21 03:42 MCV 84.0 fl (80-94) 03/12/21 03:42 MCH 26.0 pg (28.0-34.0) L 03/12/21 03:42 MCHC 31.0 g/dL (30.0-36.0) 03/12/21 03:42 RDW 17.2 % (12.1-15.1) H 03/12/21 03:42 Plt Count 223 10^3/cmm (130-400) 03/12/21 03:42 MPV 9.3 fL (7.4-10.4) 03/12/21 03:42 Neut % (Auto) 70.9 % 03/12/21 03:42 Lymph % (Auto) 17.6 % 03/12/21 03:42 Cass % (Auto) 10.3 % 03/12/21 03:42 Eos % (Auto) 0.2 % 03/12/21 03:42 Baso % (Auto) 0.2 % 03/12/21 03:42 Neut # (Auto) 4.19 10^3/uL (1.8-7.7) 03/12/21 03:42 Lymph # (Auto) 1.0 10^3/uL (0.8-4.8) 03/12/21 03:42 Cass # (Auto) 0.6 10^3/uL (0.2-0.9) 03/12/21 03:42 Eos # (Auto) 0.0 10^3/uL (0.0-0.8) 03/12/21 03:42 Baso # (Auto) 0.0 10^3/uL (0.0-0.1) 03/12/21 03:42 Nucleated RBC % (auto) 0 % 03/12/21 03:42 Nucleated RBCs # 0.0 /100WBC 03/12/21 03:42 PT 24.80 SECONDS (12.1-14.9) H 03/12/21 03:42 INR 2.19 (0.8-1.2) H 03/12/21 03:42 Sodium 137 mmol/L (136-145) 03/12/21 03:42 Potassium 5.0 mmol/L (3.5-5.1) 03/12/21 03:42 Chloride 105 mmol/L (98-107) 03/12/21 03:42 Carbon Dioxide 19 mmol/L (22-29) L 03/12/21 03:42 Anion Gap 18.0 (5-19) 03/12/21 03:42 BUN 19 mg/dL (8-23) 03/12/21 03:42 Creatinine 1.0 mg/dL (0.7-1.2) 03/12/21 03:42 GFR Calculation 76.2 mL/min (90-130) L 03/12/21 03:42 Glucose 99 mg/dL (65-115) 03/12/21 03:42 Estimat Average Glucose 108 03/12/21 03:42 Hemoglobin A1c 5.4 % (4.0-6.0) 03/12/21 03:42 Calculated Osmolality 286 mOsm/kg (285-295) 03/12/21 03:42 Calcium 8.9 mg/dL (8.5-10.5) 03/12/21 03:42 Phosphorus 3.7 mg/dL (2.5-4.5) 03/12/21 03:42 Magnesium 2.0 mg/dL (1.7-2.3) 03/12/21 03:42 Total Bilirubin 0.6 mg/dL (0.15-1.2) 03/12/21 03:42 AST 34 U/L (0-40) 03/12/21 03:42 ALT 28 U/L (0-41) 03/12/21 03:42 Alkaline Phosphatase 85 IU/L (40-130) 03/12/21 03:42 Troponin T Baseline 23 ng/L (0-15) H 03/11/21 15:00 Troponin T 120 Minute 21.48 ng/L (0-15) H 03/11/21 17:05 Delta Troponin T -1.52 ABS# (0-10) L 03/11/21 17:05 Troponin T Hi Sens 6Hr 24.78 ng/L (0-15) H 03/11/21 20:38 Troponin T Hi Sens 6Hr Delta 1.78 ng/L (0-12) 03/11/21 20:38 NT-Pro-B Natriuret Pep 4543 pg/mL (0-125) H 03/12/21 03:42 Total Protein 6.6 g/dL (6.6-8.7) 03/12/21 03:42 Albumin 3.9 g/dL (3.5-5.2) 03/12/21 03:42 Globulin 2.7 g/dL (1.3-4.6) 03/12/21 03:42 Triglycerides 95 mg/dL (0-150) 03/12/21 03:42 Cholesterol 113 mg/dL (0-200) 03/12/21 03:42 LDL Cholesterol, Calc 57 mg/dL (50-129) 03/12/21 03:42 HDL Cholesterol 37 mg/dL (60-100) L 03/12/21 03:42 LDL/HDL Ratio 1.54 RATIO (0.00-3.22) 03/12/21 03:42 Cholesterol/HDL Ratio 3.05 mg/dL (1.0-5.00) 03/12/21 03:42 TSH 4.67 uIU/mL (0.27-4.20) H 03/11/21 15:00 Free T4 1.38 ng/dL (0.82-1.77) 03/11/21 15:00 Digoxin 1.2 ng/mL (0.6-1.2) 03/11/21 15:00 A&P Assessment and plan (1) Symptomatic bradycardia: The patient seems to be responding to the medication changes. At this point, he may require any further intervention. We will continue on the current medication. Status: Acute (2) Dyslipidemia: Continue on the current medications. Status: Acute (3) Benign essential HTN: We will continue to optimize antihypertensive medications. Status: Acute (4) Atherosclerotic heart disease: Patient had multiple PCI's in the past. He seems to be stable with no specific cardiac symptoms at this point. Status: Acute (5) Near syncope: Since he has no recurrence of syncope/near syncope, may not require any further intervention. Advised to continue the current measures. Status: Acute (6) Intermittent atrial fibrillation: Patient is on long-term oral anticoagulation.this may be continued. Status: Acute Plan Other problems are ASD If the patient continues remain stable, he may be discharged home from a cardiac standpoint. Discussed with Dr. Stevie Page Medical Necessity Statement*: Possible discharge home today Coding Level of Care Code Acute Grant Writer for [employer] Fwd History Detailed Exam Detailed Medical Decision Making Moderate Complexity Diagnoses Dyslipidemia E78.5 Benign essential HTN I10 Atherosclerotic heart disease I25.10 Symptomatic bradycardia R00.1 Near syncope R55 Intermittent atrial fibrillation I48.0
--- NOTE | 2021-03-12 15:20 | PM.DCS ---
Discharge Providers Date of Admission: 03/12/21 01:45 Date of Discharge: March 12, 2021 Attending Provider at Admission: Solo Harding MD Attending Provider at Discharge: Keon Bonilla MD Diagnoses at Discharge Discharge Diagnosis (1) Near syncope: Status: Acute (2) Intermittent atrial fibrillation: Status: Acute (3) Symptomatic bradycardia: Status: Acute (4) Atherosclerotic heart disease: Status: Acute (5) Benign essential HTN: Status: Acute (6) Dyslipidemia: Status: Acute Reason for Visit Reason for Visit: LOW HEART RATE, PASSING OUT Hospital Course Hospital Course Kyree Wilkerson is a 60 year old male, presented to the emergency room today with complaints of recurrent episodes of near syncope. Patient has a history of atherosclerotic heart disease, chronic atrial fibrillation, ASD repair and aortic valve stenosis. This patient has a history of chronic intermittent atrial fibrillation. He is awaiting surgery for his ASD closure, possible aortic valve replacement and maze procedure at the [facility] in [place]. As a preoperative work-up, he had a cardiac catheterization by Dr. Kyree Mcdonnell at the [facility]. He apparently had a PCI with stenting in one of the arteries. Details are not available. Because of the stent placement, the surgical intervention was postponed-according to the patient and his family. He had a 2 radiofrequency ablation for the atrial fibrillation. He also had a total of 4 electrical cardioversion for symptomatic arrhythmia. The most recent cardioversion was done on 07 February last year. Following the cardioversion, he was placed on amiodarone. He also been taking long-acting metoprolol 50 mg twice daily and digoxin on a as needed basis. He also was given metoprolol tartrate to be taken on a as needed basis for uncontrolled heart rate by his primary care provider. The cervical cardioversion was unsuccessful. He has been having episodes of palpitations with a heart rate in the 150s and 160s. For that reason, he was taking digoxin and the short-acting metoprolol on a as needed basis. He denies any chest pain or chest tightness. No unusual shortness of breath. He had a PCI's in the past. These details are not available. Patient was found to have heart rate in the 20s at home. He is a data entry email processor. He had an several episodes of near syncope in his vehicle. According to him, he will pull out and parked the car while having dizziness or near syncopal spells. Because of the recurrent episodes, he was brought to the emergency room. He never had any complete loss of consciousness. He never had similar episodes in the past. The first episode of near syncope happened around 1030 this morning. Patient has a history of high blood pressure and dyslipidemia. Also history of BPH. No history for any CVA or peripheral artery disease. No history for diabetes. No bleeding disorders. He is on long-term oral anticoagulation with the Coumadin. Patient was admitted to the hospital for further monitoring and evaluation of symptomatic bradycardia. Patient's salvatore blockade were withheld given the patient's bradycardia and symptomatic heart block. Amiodarone and metoprolol was gradually restarted. Patient tolerated restarting of metoprolol and amiodarone well. His heart rate has remained stable both at rest and ambulation. Patient is being discharged in hemodynamically stable condition with advice to take digoxin and metoprolol at as needed basis. On admission he was found to have elevated blood pressures for which hydralazine has been added to his medication list. 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 Jane in the next 1 month. Physical Exam Const: COMMON NORMALS: no acute distress and patient oriented x3 HENMT: COMMON NORMALS: normocephalic HEAD & SCALP: normocephalic Neck/C-Spine: COMMON NORMALS: no JVD Resp: COMMON NORMALS: normal respiratory effort, No retractions, No use of accessory muscles and clear to auscultation bilaterally AUSCULTATION: clear to auscultation bilaterally Cardio: COMMON NORMALS: no JVD, S1 normal heart sound present and S2 normal heart sound present HEART SOUNDS: S1 normal heart sound present and S2 normal heart sound present GI: COMMON NORMALS: Normal to inspection, nondistended, normoactive bowel sounds present, Soft to palpation, non-tender, No hepatosplenomegaly present, no masses and no bruits PALPATION: Yes Soft to palpation and Yes No hepatosplenomegaly present Extremity: COMMON NORMALS: capillary refill normal, no clubbing, cyanosis or edema, no calf tenderness and no pedal edema Neuro: COMMON NORMALS: patient oriented x3 Psych: COMMON NORMALS: mental status grossly normal Discharge Data Studies Completed and Pending Completed Studies During Hospitalization Category Date Time Status XR chest 1V portable [id number] Stat Exams 03/11/21 14:38 Completed Pending at discharge Category Date Time Status Complete Blood Count w/Auto AM LABS Lab 03/13/21 04:00 Ordered Complete Blood Count w/Auto AM LABS Lab 03/14/21 04:00 Ordered Comprehensive Metabolic Panel AM LABS Lab 03/13/21 04:00 Ordered Comprehensive Metabolic Panel AM LABS Lab 03/14/21 04:00 Ordered Magnesium AM LABS Lab 03/13/21 04:00 Ordered Magnesium AM LABS Lab 03/14/21 04:00 Ordered Phosphorus AM LABS Lab 03/13/21 04:00 Ordered Phosphorus AM LABS Lab 03/14/21 04:00 Ordered Prothrombin Time INR AM LABS Lab 03/13/21 04:00 Ordered Prothrombin Time INR AM LABS Lab 03/14/21 04:00 Ordered CV. echo complete* [id number] Routine Ultrasound 03/12/21 01:45 Taken Radiology Impressions Chest X-Ray 03/11/21 14:38 IMPRESSION: 1. No acute cardiopulmonary disease. 2. 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 This has been previously described and may have improved since the prior study of 10/29/2020. Laboratory Results WBC 5.9 10^3/uL (4.0-10.0) 03/12/21 03:42 RBC 4.50 10^6/uL (4.1-5.3) 03/12/21 03:42 Hgb 11.7 g/dL (11.7-16.6) 03/12/21 03:42 Hct 37.8 % (42.0-52.0) L 03/12/21 03:42 MCV 84.0 fl (80-94) 03/12/21 03:42 MCH 26.0 pg (28.0-34.0) L 03/12/21 03:42 MCHC 31.0 g/dL (30.0-36.0) 03/12/21 03:42 RDW 17.2 % (12.1-15.1) H 03/12/21 03:42 Plt Count 223 10^3/cmm (130-400) 03/12/21 03:42 MPV 9.3 fL (7.4-10.4) 03/12/21 03:42 Neut % (Auto) 70.9 % 03/12/21 03:42 Lymph % (Auto) 17.6 % 03/12/21 03:42 [place] % (Auto) 10.3 % 03/12/21 03:42 Eos % (Auto) 0.2 % 03/12/21 03:42 Baso % (Auto) 0.2 % 03/12/21 03:42 Neut # (Auto) 4.19 10^3/uL (1.8-7.7) 03/12/21 03:42 Lymph # (Auto) 1.0 10^3/uL (0.8-4.8) 03/12/21 03:42 [place] # (Auto) 0.6 10^3/uL (0.2-0.9) 03/12/21 03:42 Eos # (Auto) 0.0 10^3/uL (0.0-0.8) 03/12/21 03:42 Baso # (Auto) 0.0 10^3/uL (0.0-0.1) 03/12/21 03:42 Nucleated RBC % (auto) 0 % 03/12/21 03:42 Nucleated RBCs # 0.0 /100WBC 03/12/21 03:42 PT 24.80 SECONDS (12.1-14.9) H 03/12/21 03:42 INR 2.19 (0.8-1.2) H 03/12/21 03:42 Sodium 137 mmol/L (136-145) 03/12/21 03:42 Potassium 5.0 mmol/L (3.5-5.1) 03/12/21 03:42 Chloride 105 mmol/L (98-107) 03/12/21 03:42 Carbon Dioxide 19 mmol/L (22-29) L 03/12/21 03:42 Anion Gap 18.0 (5-19) 03/12/21 03:42 BUN 19 mg/dL (8-23) 03/12/21 03:42 Creatinine 1.0 mg/dL (0.7-1.2) 03/12/21 03:42 GFR Calculation 76.2 mL/min (90-130) L 03/12/21 03:42 Glucose 99 mg/dL (65-115) 03/12/21 03:42 Estimat Average Glucose 108 03/12/21 03:42 Hemoglobin A1c 5.4 % (4.0-6.0) 03/12/21 03:42 Calculated Osmolality 286 mOsm/kg (285-295) 03/12/21 03:42 Calcium 8.9 mg/dL (8.5-10.5) 03/12/21 03:42 Phosphorus 3.7 mg/dL (2.5-4.5) 03/12/21 03:42 Magnesium 2.0 mg/dL (1.7-2.3) 03/12/21 03:42 Total Bilirubin 0.6 mg/dL (0.15-1.2) 03/12/21 03:42 AST 34 U/L (0-40) 03/12/21 03:42 ALT 28 U/L (0-41) 03/12/21 03:42 Alkaline Phosphatase 85 IU/L (40-130) 03/12/21 03:42 Troponin T Baseline 23 ng/L (0-15) H 03/11/21 15:00 Troponin T 120 Minute 21.48 ng/L (0-15) H 03/11/21 17:05 Delta Troponin T -1.52 ABS# (0-10) L 03/11/21 17:05 Troponin T Hi Sens 6Hr 24.78 ng/L (0-15) H 03/11/21 20:38 Troponin T Hi Sens 6Hr Delta 1.78 ng/L (0-12) 03/11/21 20:38 NT-Pro-B Natriuret Pep 4543 pg/mL (0-125) H 03/12/21 03:42 Total Protein 6.6 g/dL (6.6-8.7) 03/12/21 03:42 Albumin 3.9 g/dL (3.5-5.2) 03/12/21 03:42 Globulin 2.7 g/dL (1.3-4.6) 03/12/21 03:42 Triglycerides 95 mg/dL (0-150) 03/12/21 03:42 Cholesterol 113 mg/dL (0-200) 03/12/21 03:42 LDL Cholesterol, Calc 57 mg/dL (50-129) 03/12/21 03:42 HDL Cholesterol 37 mg/dL (60-100) L 03/12/21 03:42 LDL/HDL Ratio 1.54 RATIO (0.00-3.22) 03/12/21 03:42 Cholesterol/HDL Ratio 3.05 mg/dL (1.0-5.00) 03/12/21 03:42 TSH 4.67 uIU/mL (0.27-4.20) H 03/11/21 15:00 Free T4 1.38 ng/dL (0.82-1.77) 03/11/21 15:00 Digoxin 1.2 ng/mL (0.6-1.2) 03/11/21 15:00 Vitals Last Vital Signs Temp 98.6 F 03/12/21 13:19 Pulse 69 03/12/21 13:19 Resp 18 03/12/21 13:19 BP 166/89 03/12/21 13:19 Pulse Ox 99 03/12/21 13:19 Discharge Plan Discharge Patient Disposition: Home Condition: Stable Prescriptions: New metoprolol succinate 50 mg Tablet Extended Release 24 Hr 50 mg PO DAILY 30 Days Qty: 30 0RF hydralazine 25 mg Tablet 25 mg PO Q8H 30 Days Qty: 90 0RF Continued allopurinol 300 mg tablet 300 mg PO BEDTIME 0RF alprazolam 0.25 mg tablet 0.25 mg PO BID PRN (Reason: Anxiety) 0RF rosuvastatin [Crestor] 20 mg tablet 20 mg PO BEDTIME 0RF lansoprazole 15 mg capsule,delayed release(DR/EC) 15 mg PO DAILY 0RF tamsulosin 0.4 mg capsule 0.4 mg PO BEDTIME 0RF warfarin 5 mg tablet See Rx Instructions .ROUTE .COMPLEX 0RF Rx Instructions: 5mg po qpm on mon,wed,th, and fri 2.5mg po qpm on tu,sat,sun ascorbate calcium (vitamin C) 500 mg tablet 500 mg PO QAM 0RF multivitamin Tablet 1 tab PO QAM 0RF losartan 50 mg tablet 25 mg PO BEDTIME 0RF amiodarone 200 mg tablet 200 mg PO BEDTIME 0RF meloxicam 15 mg tablet 15 mg PO QAM 0RF clopidogrel 75 mg tablet 75 mg PO QAM 0RF Aspir-81 81 mg Tablet,Delayed Release (Dr/Ec) 81 mg PO QAM 0RF zinc 50 mg Tablet 50 mg PO QAM 0RF CoQ-10 100 mg Capsule 100 mg PO QAM 0RF potassium gluconate 595 mg (99 mg) Tablet 595 mg PO QAM 0RF turmeric 400 mg Capsule 400 mg PO QAM 0RF Fish Oil 1 cap PO QAM 0RF Glucosamine 1 cap PO QAM 0RF Vitamin B-12 1 tab PO QAM 0RF magnesium 1 tab PO QAM 0RF Discontinued metoprolol succinate 100 mg tablet extended release 24 hr 50 mg PO BID 0RF metoprolol tartrate 50 mg tablet 50 mg PO BID PRN (Reason: heart rate) 0RF Discharge Orders: Discharge Order (Routine); Ordered 03/12/21 Ordered By: Keon Bonilla Discharge Diet: Usual diet Discharge Activity: Resume usual activity Discharge Attestations Time Spent in Discharge Care*: greater than 30 min Specific Discharge Activities: educating patient, discussing with pcp/other providers, discussing with comp field case manager/social workers/dc planners, documenting/other paperwork and evaluating patient/reviewing data Status at Discharge: Cognitive status at discharge: cognitively intact, Behavioral status at discharge: cooperative, Functional status at discharge: independent ambulation, Overall status at discharge: patient is back to baseline Quality Metrics Clinical Quality Measures [ No reported AMI, CVA or VTE this stay] Coding Level of Care Code Acute Chg FW DC note Diagnoses Near syncope R55 Intermittent atrial fibrillation I48.0 Symptomatic bradycardia R00.1 Atherosclerotic heart disease I25.10 Benign essential HTN I10 Dyslipidemia E78.5
--- NOTE | 2021-03-12 15:34 | DCPLANNER ---
Addendum entered by Maryann Fisher 05/23/21 08:25: Patient had a follow up appointment scheduled with [facility] - appointment cancelled. Original Note: manufacturing maintenance manager had message to schedule a follow up appointment for patient with Dr. Jane at [facility]. manufacturing maintenance manager called [facility], spoke with Padmini, gave clinic patients information. A follow up appointment was scheduled for Wednesday, April 23, 2021 at 10:[address] Jane. manufacturing maintenance manager had the appointment information added to patients discharge plan.
[2021-03-12] MEDS: warfarin 5 mg Tablet PO (16:38)
== END 2021-03-12 16:40 | disposition home or self-care (01) | DRG 309 ==
LOC: ER 20:44 → ER IP 03-12 06:01
PROVIDERS: Admitting Provider Family Medicine; Emergency Provider Emergency Medicine; Visit Provider Student in an Organized Health Care Education/Training Program
DX: R00.1 Bradycardia, unspecified (principal); Q21.1 Atrial septal defect; T44.7X5A Adverse effect of beta-adrenoreceptor antagonists, initial encounter; I48.0 Paroxysmal atrial fibrillation; I25.10 Atherosclerotic heart disease of native coronary artery without angina pectoris; I10 Essential (primary) hypertension; E78.5 Hyperlipidemia, unspecified; Z79.01 Long term (current) use of anticoagulants; I35.0 Nonrheumatic aortic (valve) stenosis; Z95.5 Presence of coronary angioplasty implant and graft; Z79.82 Long term (current) use of aspirin
CPT/HCPCS: 36415; 71045; 80053; 80061; 80162; 83036; 83735; 83880; 84100; 84439; 84443; 84484; 85025; 85610; 93005; 93306; 94664; 96374; 96375; 96376; 99285; J0461; J2270; J2405; J7030

== ENCOUNTER 2021-05-25 18:15 | Emergency (ER) | payer BC, SELFPAY ==
[2021-05-25 18:40] VITALS: BP 154/89; PULSE 80; RESP 18; TEMP 38; O2SAT 97; BMI 28.8
--- NOTE | 2021-05-25 18:57 | CTR_ITS ---
PROCEDURE INFORMATION: Exam: CT Head Without Contrast Exam date and time: 05/25/2021 7:18 PM Age: 60 years old Clinical indication: Injury or trauma; Blunt trauma (contusions or hematomas); Without loss of consciousness; Patient HX: Fall this pm - on elequis TECHNIQUE: Imaging protocol: Computed tomography of the head without contrast. Radiation optimization: All CT scans at this facility use at least one of these dose optimization techniques: automated exposure control; mA and/or kV adjustment per patient size (includes targeted exams where dose is matched to clinical indication); or iterative reconstruction. COMPARISON: No relevant prior studies available. RADIATION DOSE METRICS: Total DLP (mGy-cm): 960.55 FINDINGS: Brain: There is volume loss and periventricular low density compatible with chronic small vessel disease changes. There is no acute hemorrhage, edema or mass effect. There is bilateral encephalomalacia in the frontal lobes. Cerebral ventricles: No ventriculomegaly. Paranasal sinuses: There is mild mucosal thickening in the sinuses. Mastoid air cells: Visualized mastoid air cells are well aerated. Soft tissues: Unremarkable. Bones/joints: Unremarkable. No acute fracture. CT/CT head wo con* [id number] IMPRESSION: No acute intracranial abnormality.
--- NOTE | 2021-05-25 18:57 | XRR_ITS ---
PROCEDURE INFORMATION: Exam: XR Chest Exam date and time: 05/25/2021 7:23 PM Age: 60 years old Clinical indication: Fever; Prior surgery; Surgery date: 1-6 months; Surgery type: Life vest, open heart TECHNIQUE: Imaging protocol: XR of the chest. Views: 1 view. COMPARISON: CR XR chest 1V portable [id number] 03/11/2021 3:10 PM FINDINGS: Tubes, catheters and devices: A pacemaker device is present, and its leads are in appropriate position. Lungs: There is unchanged interstitial prominence/fibrosis in the lungs. No airspace consolidation. Pulmonary vascularity is within normal limits. Pleural spaces: Unremarkable. No pleural effusion. No pneumothorax. Heart/Mediastinum: The heart is enlarged. Bones/joints: Sternotomy wires and mediastinal surgical clips are present, consistent with previous coronary arterial bypass grafting. XR/XR chest 1V portable [id number] IMPRESSION: No active pulmonary disease.
--- NOTE | 2021-05-25 19:09 | XRR_ITS ---
PROCEDURE INFORMATION: Exam: XR Right Elbow Exam date and time: 05/25/2021 7:24 PM Age: 60 years old Clinical indication: Injury or trauma; Fall; Blunt trauma (contusions or hematomas); Elbow; Right; Prior surgery; Surgery date: 6+ months TECHNIQUE: Imaging protocol: XR Right elbow. Views: 1 or 2 views. COMPARISON: CR XR shoulder RT min 2V* [id number] 10/29/2020 2:53 PM FINDINGS: Bones/joints: There is an acute angulated oblique fracture through the distal humeral diaphysis just proximal to the multiple plates and screws spanning an old fracture of the distal humerus. Postoperative plate and screw fixation of the distal humerus and proximal ulna are intact. No hardware fracture or loosening. The. No additional acute bony abnormality. Soft tissues: There is abundant soft tissue edema in the upper arm adjacent to the fracture. XR/XR elbow RT 2V [id number] IMPRESSION: There is an acute angulated oblique fracture through the distal humeral diaphysis just proximal to the multiple plates and screws spanning an old fracture of the distal humerus. No hardware fracture or loosening.
--- NOTE | 2021-05-25 19:13 | ED_ITS ---
HPI - Extremity Problem General: Chief complaint: Extremity Injury, Upper Stated complaint: R arm Injury Time Seen by Provider: 05/25/21 18:48 Source: patient Mode of arrival: ambulatory Limitations: no limitations History of Present Illness: 60-year-old male states that he went outside today tripped fell fell on his right side. He states he fell directly on his arm has obvious deformity his right elbow. He is unsure if he hit his head he does remain remember hitting his head but he is on Eliquis currently. He states that his whole family is also had the flu and has had a slight cough body aches and low-grade fevers for last 2 days and believes he also has the flu he denies any weakness vomiting or diarrhea. He denies passing out before his fall. Associated symptoms: Reports fever(s); Deny chest pain or rash Review of Systems Const: Reports: fever(s) and chills Eyes: Denies: blurry vision or eye discomfort ENMT: Denies: throat pain or dental pain Card: Denies: chest pain Resp: Reports: non-productive cough GI: Denies: abdominal pain, nausea, vomiting or diarrhea : Denies: dysuria Musc: Reports: extremity pain Skin/Breast: Denies: rash Neuro: Denies: headache(s) Psych: Denies: depression Gavin/Lymph: Denies: easy bruising All/Imm: Denies: urticaria PFSH ED PFSH: Medical History Afib Anxiety Aortic aneurysm Gout Hyperlipidemia Hypertension Migraine Surgical History History of arthroscopic knee surgery History of cardiac radiofrequency ablation History of open heart surgery History of PTCA Family History Mother Hypertension Diabetes Atrial fibrillation Social History Smoking and tobacco status: never smoked Alcohol intake: current Alcohol intake frequency: few times a month Physical Exam Const: COMMON NORMALS: no acute distress, patient oriented x3 and healthy appearing HENMT: COMMON NORMALS: normocephalic and atraumatic HEAD & SCALP: normocephalic and atraumatic Eye: COMMON NORMALS: Equal, round and reactive pupils present and EOMs intact bilaterally PUPIL: Yes Equal, round and reactive pupils present Neck/C-Spine: COMMON NORMALS: full ROM and supple Chest: COMMONS NORMALS: normal inspection of the chest and normal palpation of entire chest wall Resp: COMMON NORMALS: normal respiratory effort, No retractions, No use of accessory muscles and clear to auscultation bilaterally AUSCULTATION: clear to auscultation bilaterally Cardio: COMMON NORMALS: regular rate, regular rhythm and No murmurs present (Cardio) RATE: regular rate RHYTHM: regular rhythm GI: COMMON NORMALS: Normal to inspection, nondistended, normoactive bowel sounds present, Soft to palpation, non-tender and no masses PALPATION: Yes Soft to palpation Extremity: COMMON NORMALS: full ROM NARRATIVE EXTREMITY EXAM: Obvious deformity to right elbow distal pulses and sensation intact Neuro: COMMON NORMALS: patient oriented x3, moves all extremities and no focal motor deficits Psych: COMMON NORMALS: mental status grossly normal, Normal thought process present and cooperative THOUGHT PROCESS: Normal thought process present Skin: COMMON NORMALS: no rashes or lesions noted and no wounds GENERAL SKIN EXAM: no rashes or lesions noted Course Vital Signs: Vital signs: Vital Signs Temperature 100.4 F H 05/25/21 18:40 Pulse Rate 80 05/25/21 18:40 Respiratory Rate 18 05/25/21 18:40 Blood Pressure 154/89 05/25/21 18:40 Pulse Oximetry 97 05/25/21 18:40 MDM - Extremity (Nontraumatic) Medical Decision Making Patient presents here after a fall he does have a right arm fracture his flu was negative here but with his recent exposure he likely has influenza he is fairly asymptomatic well-appearing no signs of any serious infection I did speak to orthopedics will place him in a splint and get him follow-up. Lab Data : 05/25/21 19:37 05/25/21 19:37 Radiology Impressions Chest X-Ray 05/25/21 18:57 IMPRESSION: No active pulmonary disease. Head CT 05/25/21 18:57 IMPRESSION: No acute intracranial abnormality. Elbow X-Ray 05/25/21 19:09 IMPRESSION: There is an acute angulated oblique fracture through the distal humeral diaphysis just proximal to the multiple plates and screws spanning an old fracture of the distal humerus. No hardware fracture or loosening. Laboratory Results WBC 6.1 10^3/uL (4.0-10.0) 05/25/21 19:37 RBC 3.36 10^6/uL (4.1-5.3) L 05/25/21 19:37 Hgb 9.4 g/dL (11.7-16.6) L 05/25/21 19:37 Hct 30.9 % (42.0-52.0) L 05/25/21 19: MCV 92.0 fl (80-94) 05/25/21 19:37 MCH 28.0 pg (28.0-34.0) 05/25/21 19: MCHC 30.4 g/dL (30.0-36.0) 05/25/21 19: RDW 15.2 % (12.1-15.1) H 05/25/21 19: Plt Count 194 10^3/cmm (130-400) 05/25/21 19: MPV 9.1 fL (7.4-10.4) 05/25/21 19:37 Neut % (Auto) 76.0 % 05/25/21 19:37 Lymph % (Auto) 12.3 % 05/25/21 19:37 [place] % (Auto) 9.6 % 05/25/21 19:37 Eos % (Auto) 1.3 % 05/25/21 19:37 Baso % (Auto) 0.3 % 05/25/21 19:37 Neut # (Auto) 4.65 10^3/uL (1.8-7.7) 05/25/21 19:37 Lymph # (Auto) 0.8 10^3/uL (0.8-4.8) 05/25/21 19:37 [place] # (Auto) 0.6 10^3/uL (0.2-0.9) 05/25/21 19: Eos # (Auto) 0.1 10^3/uL (0.0-0.8) 05/25/21 19: Baso # (Auto) 0.0 10^3/uL (0.0-0.1) 05/25/21 19:37 Nucleated RBC % (auto) 0 % 05/25/21: Nucleated RBCs # 0.0 /100WBC 05/25/21 19:37 Sodium 135 mmol/L (136-145) L 05/25/21 19:37 Potassium 4.2 mmol/L (3.5-5.1) 05/25/21 19:37 Chloride 103 mmol/L (98-107) 05/25/21 19:37 Carbon Dioxide 22 mmol/L (22-29) 05/25/21 19:37 Anion Gap 14.2 (5-19) 05/25/21 19:37 BUN 12 mg/dL (8-23) 05/25/21 19:37 Creatinine 0.8 mg/dL (0.7-1.2) 05/25/21 19:37 GFR Calculation 98.6 mL/min (90-130) 05/25/21 19:37 Glucose 108 mg/dL (65-115) 05/25/21 19:37 Calculated Osmolality 280 mOsm/kg (285-295) L 05/25/21 19:37 Calcium 9.3 mg/dL (8.5-10.5) 05/25/21 19:37 Total Bilirubin 0.4 mg/dL (0.15-1.2) 05/25/21 19:37 AST 19 U/L (0-40) 05/25/21 19:37 ALT 19 U/L (0-41) 05/25/21 19:37 Alkaline Phosphatase 114 IU/L (40-130) 05/25/21 19:37 Total Protein 6.8 g/dL (6.6-8.7) 05/25/21 19:37 Albumin 3.9 g/dL (3.5-5.2) 05/25/21 19:37 Globulin 2.9 g/dL (1.3-4.6) 05/25/21 19:37 Influenza Type A Ag Negative (Negative) 05/25/21 19:32 Influenza Type B Ag Negative (Negative) 05/25/21 19:32 Discharge Plan Discharge Patient Disposition: Home Clinical Impression: Closed right humeral fracture Qualifiers: Encounter type: initial encounter Humerus Location: distal Fracture alignment: nondisplaced Condition: Stable Prescriptions: New hydrocodone-acetaminophen 5-325 mg tablet 1 tab PO Q6H PRN (Reason: pain) Qty: 14 0RF No Action allopurinol 300 mg tablet 300 mg PO BEDTIME 0RF alprazolam 0.25 mg tablet 0.25 mg PO BID PRN (Reason: Anxiety) 0RF rosuvastatin [Crestor] 20 mg tablet 20 mg PO BEDTIME 0RF lansoprazole 15 mg capsule,delayed release(DR/EC) 15 mg PO DAILY 0RF tamsulosin 0.4 mg capsule 0.4 mg PO BEDTIME 0RF warfarin 5 mg tablet See Rx Instructions .ROUTE .COMPLEX 0RF Rx Instructions: 5mg po qpm on mon,wed,, and wed 2.5mg po qpm on ,wed,sun ascorbate calcium (vitamin C) 500 mg tablet 500 mg PO QAM 0RF multivitamin Tablet 1 tab PO QAM 0RF losartan 50 mg tablet 25 mg PO BEDTIME 0RF amiodarone 200 mg tablet 200 mg PO BEDTIME 0RF meloxicam 15 mg tablet 15 mg PO QAM 0RF clopidogrel 75 mg tablet 75 mg PO QAM 0RF aspirin 81 mg Tablet,Delayed Release (Dr/Ec) 81 mg PO QAM 0RF zinc 50 mg Tablet 50 mg PO QAM 0RF CoQ-10 100 mg Capsule 100 mg PO QAM 0RF potassium gluconate 595 mg (99 mg) Tablet 595 mg PO QAM 0RF turmeric 400 mg Capsule 400 mg PO QAM 0RF Fish Oil 1 cap PO QAM 0RF Glucosamine 1 cap PO QAM 0RF Vitamin B-12 1 tab PO QAM 0RF magnesium 1 tab PO QAM 0RF Discharge Orders: Discharge ED (Routine); Ordered 05/25/21 Ordered By: Mik Diaz Referrals: Chandan Martinez DO [Physician] - 1-3 days Discharge Diet: Advance as tolerated Discharge Activity: Resume usual activity Patient Instructions: Arm Fracture in Adults (ED), Opioid Safety Coding Level of Care Code ED Print Project Manager for Chg Fwd Exam Comprehensive
[2021-05-25] MEDS: sodium chloride 0.9% 1,000 ML 999 ML IV (19:39)
[2021-05-25] MEDS: HYDROcodone-acetaminophen 10-325 mg Tablet 1 TAB PO (19:40)
[2021-05-25 19:46] LABS: Basophils % 0.3 %; Eosinophils # 0.1 10^3/uL (0.0-0.8); Eosinophils % 1.3 %; Hematocrit 30.9 % (42.0-52.0); Hemoglobin 9.4 g/dL (11.7-16.6); Lymphocytes # 0.8 10^3/uL (0.8-4.8); Lymphocytes % 12.3 %; Mean Corpuscular HGB Conc 30.4 g/dL (30.0-36.0); Mean Platelet Volume 9.1 fL (7.4-10.4); Monocytes # 0.6 10^3/uL (0.2-0.9); Monocytes % 9.6 %; Neutrophils # 4.65 10^3/uL (1.8-7.7); Nucleated Red Blood Cells % 0 %; Platelet Count 194 10^3/cmm (130-400); Red Blood Count 3.36 10^6/uL (4.1-5.3); Red Cell Distribution Width 15.2 % (12.1-15.1); White Blood Count 6.1 10^3/uL (4.0-10.0)
[2021-05-25 20:07] LABS: Alanine Aminotransferase 19 U/L (0-41); Albumin Level 3.9 g/dL (3.5-5.2); Alkaline Phosphatase 114 IU/L (40-130); Anion Gap 14.2 (5-19); Aspartate Amino Transferase 19 U/L (0-40); Blood Urea Nitrogen 12 mg/dL (8-23); Calcium 9.3 mg/dL (8.5-10.5); Carbon Dioxide 22 mmol/L (22-29); Chloride 103 mmol/L (98-107); Globulin 2.9 g/dL (1.3-4.6); Glomerular Filtration Rate 98.6 mL/min (90-130); Glucose 108 mg/dL (65-115); Osmolality Calculated 280 mOsm/kg (285-295); Potassium 4.2 mmol/L (3.5-5.1); Sodium 135 mmol/L (136-145); Total Bilirubin 0.4 mg/dL (0.15-1.2); Total Protein 6.8 g/dL (6.6-8.7)
[2021-05-25 20:09] LABS: Influenza A by IFA Negative (Negative); Influenza B by IFA Negative (Negative)
[2021-05-25] MEDS: HYDROcodone-acetaminophen 5-325 mg Tablet 2 TAB PO (20:40)
--- NOTE | 2021-05-26 10:32 | DCPLANNER ---
Addendum entered by Maryann Fisher 06/25/21 21:07: Patient had a follow up appointment scheduled with ortho - patient did attend appointment. Addendum entered by Maryann Fisher 05/27/21 07:42: Patient has a follow up appointment scheduled for Thursday, May 27, 2021 at 10:30 with JOSE RAMON Betts, at ortho. Clinic will notify patient with appointment information. Original Note: mutuel department manager had message to schedule a follow up appointment for patient with ortho. mutuel department manager sent patients information to the ortho front staff for review. Patients information will be printed and reviewed. Clinic will call patient with appointment information.
== END 2021-05-25 20:45 | disposition home or self-care (01) ==
PROVIDERS: Emergency Provider Emergency Medicine
DX: S42.491A Other displaced fracture of lower end of right humerus, initial encounter for closed fracture (principal); W01.0XXA Fall on same level from slipping, tripping and stumbling without subsequent striking against object, initial encounter
CPT/HCPCS: 29105; 70450; 71045; 73070; 80053; 85025; 87804; 96360; 99284; J7030

== ENCOUNTER → 2021-05-27 10:35 | Outpatient (BNVA) | payer BC, SELFPAY | PROVIDERS: Referring Provider Emergency Medicine; Visit Provider Physician Assistant | DX: S59.901A Unspecified injury of right elbow, initial encounter (principal); X58.XXXA Exposure to other specified factors, initial encounter | CPT/HCPCS: 73070 ==

== ENCOUNTER → 2021-06-10 09:18 | Outpatient (BNVA) | payer BC, SELFPAY | PROVIDERS: Visit Provider Physician Assistant | DX: S42.401D Unspecified fracture of lower end of right humerus, subsequent encounter for fracture with routine healing (principal); S52.021D Displaced fracture of olecranon process without intraarticular extension of right ulna, subsequent encounter for closed fracture with routine healing; X58.XXXD Exposure to other specified factors, subsequent encounter | CPT/HCPCS: 73080 ==

== ENCOUNTER 2021-06-10 15:08 | Outpatient (CLI) | payer BC, SELFPAY | END 2021-06-10 15:09 | disposition home or self-care (01) | LOC: SPT 15:08 | PROVIDERS: Visit Provider Physician Assistant | DX: Z46.89 Encounter for fitting and adjustment of other specified devices (principal); S42.491D Other displaced fracture of lower end of right humerus, subsequent encounter for fracture with routine healing; X58.XXXD Exposure to other specified factors, subsequent encounter | CPT/HCPCS: 97760; L3980 ==

== ENCOUNTER → 2021-06-24 10:14 | Outpatient (BNVA) | payer BC, SELFPAY | PROVIDERS: Visit Provider Physician Assistant | DX: S42.401A Unspecified fracture of lower end of right humerus, initial encounter for closed fracture (principal); X58.XXXA Exposure to other specified factors, initial encounter | CPT/HCPCS: 73060 ==

== ENCOUNTER → 2021-07-22 09:02 | Outpatient (BNVA) | payer BC, SELFPAY | PROVIDERS: Visit Provider Physician Assistant | DX: S42.401A Unspecified fracture of lower end of right humerus, initial encounter for closed fracture (principal); X58.XXXA Exposure to other specified factors, initial encounter; S42.491D Other displaced fracture of lower end of right humerus, subsequent encounter for fracture with routine healing; X58.XXXD Exposure to other specified factors, subsequent encounter | CPT/HCPCS: 73060 ==

== ENCOUNTER 2021-09-11 06:04 | Day surgery (SDC) | payer OTHER, SELFPAY ==
[2021-09-09 13:07] VITALS: BMI 28.8
[2021-09-11] VITALS (13 sets, daily range): BP systolic 152–214; BP diastolic 88–105; PULSE 70; RESP 12–20; TEMP 36.2–36.8; O2SAT 95–100
--- NOTE | 2021-09-11 06:32 | ANES.PREANE2 ---
Pre-Anesthetic Assessment Height/Weight: Height 1.73 m Weight 86.183 kg Operation Date: 09/11/21 07:00 Proposed Procedures p Laparoscopic Cholecystectomy/poss open 15419,K80.10(Not Applicable) - Tristan Menendez MD CV/HEM Atrial Fibrillation (Has had AV noted ablated - with Pacemaker now (paces him 90% of the time)), Anemia, Arrythmia (bradycardia), Coronary Artery Disease (stent placed in february, patient states his quarryman is ok with holding plavix for surgery) and Hypertension Aortic valve recplaced and CABG performed on vessel with stent in Mar 2021 CONCLUSIONS ?1. Moderately dilated left ventricle. Moderately decreased left ?ventricular systolic function. Left ventricular ejection ?fraction is estimated at 30 % visually and 32% by modified ?biplane method. Moderate global hypokinesis with abnormal septal ?motion consistent with conduction abnormality. Grade II ?diastolic dysfunction, moderately elevated filling pressures.? ?2. Mildly increased right ventricular size. Moderately decreased ?right ventricular systolic function. ?3. Possible small atrial septal defect (not well seen on the ?study). ?4.? Severe aortic valve stenosis, peak velocity 3.9 m/s, peak ?gradient 60 mmHg, mean gradient 34 mmHg, CHARLES 0.73 cm squared. Moderate ?to severe aortic valve regurgitation. ?5.? [id number] tricuspid valve regurgitation. ?6.? Moderate pulmonary hypertension with pulmonary artery ?pressure estimated at 52 mmHg. ?7.? No prior similar studies to compare. None reported Hepatic None reported GI Gastroesophageal Reflux Disease Metabolic None reported Musc/skel None reported Neuropsych None reported Anesthetic Plan ASA status: 4 Anesthesia: General Risk of > 500 ml blood loss (7ml/kg in children): No Medications/Allergies Home Medications Medication Instructions Recorded Confirmed Last Taken Type alprazolam 0.25 mg tablet 0.25 mg PO BID PRN Anxiety 10/29/20 09/09/21 Unknown History ascorbate calcium (vitamin C) 500 500 mg PO QAM 10/29/20 09/11/21 09/10/21 History mg tablet lansoprazole 15 mg capsule,delayed 15 mg PO DAILY 10/29/20 09/11/21 09/10/21 History release rosuvastatin 20 mg tablet (Crestor) 20 mg PO BEDTIME 10/29/20 09/11/21 09/10/21 History tamsulosin 0.4 mg capsule 0.4 mg PO BEDTIME 10/29/20 09/11/21 09/10/21 History Glucosamine 1 cap PO QAM 03/12/21 09/11/21 09/10/21 History clopidogrel 75 mg tablet 75 mg PO QAM 03/12/21 09/11/21 09/07/21 History coenzyme Q10 100 mg capsule 100 mg PO QAM 03/12/21 09/11/21 09/10/21 History (CoQ-10) losartan 50 mg tablet 25 mg PO BEDTIME 03/12/21 09/11/21 09/10/21 History magnesium 1 tab PO QAM 03/12/21 09/11/21 09/10/21 History meloxicam 15 mg tablet 15 mg PO QAM 03/12/21 09/11/21 09/10/21 History multivitamin 1 tab PO QAM 03/12/21 09/11/21 09/10/21 History turmeric 400 mg capsule 400 mg PO QAM 03/12/21 09/11/21 Unknown History humerus fracture brace #1 ea 06/10/21 07/22/21 Unknown Rx apixaban 5 mg tablet (Eliquis) 5 mg PO BID 09/11/21 09/11/21 09/10/21 History Allergies Allergy/AdvReac Type Severity Reaction Status Date / Time No Known Allergies Allergy Verified 09/09/21 12:58 [facility] Anesthesia Medical History Afib Anxiety Aortic aneurysm Gout Hyperlipidemia Hypertension Migraine Surgical History History of arthroscopic knee surgery History of cardiac radiofrequency ablation History of open heart surgery History of PTCA Family History Mother Hypertension Diabetes Atrial fibrillation Social History Smoking and tobacco status: never smoked Alcohol intake: current Alcohol intake frequency: few times a month Data Anesthesia Cardiac Studies: Echocardiogram 03/12/21
--- NOTE | 2021-09-11 06:38 | W.PM.OPSUD ---
Surgery/Procedure H&P Update DATE OF PROCEDURE: September 11, 2021 DATE H&P PERFORMED: 08/26/21 H&P UPDATE INFORMATION: No changes to prior documentation PREOP DIAGNOSIS: Symptomatic cholelithiasis. PLANNED PROCEDURE: Operation Date: 09/11/21 07:00 Proposed Procedures p Laparoscopic Cholecystectomy/poss open 58242,K80.10(Not Applicable) - Tristan Menendez MD
[2021-09-11] MEDS: sodium chloride 0.9% 1,000 ML 30 ML IV (06:40)
[2021-09-11] MEDS: ceFAZolin 2,000 MG in sodium chloride 0.9% (plus) 50 ML 100 MG IV (06:58)
[2021-09-11 07:12] LABS: Alanine Aminotransferase 16 U/L (0-41); Albumin Level 4.5 g/dL (3.5-5.2); Alkaline Phosphatase 109 IU/L (40-130); Aspartate Amino Transferase 21 U/L (0-40); Globulin 3.3 g/dL (1.3-4.6); Total Bilirubin 0.4 mg/dL (0.15-1.2); Total Protein 7.8 g/dL (6.6-8.7)
--- NOTE | 2021-09-11 07:47 | P.OP_ITS ---
Operative Report Date of procedure: September 11, 2021 Pre-op diagnosis: Preop Diagnosis Symptomatic cholelithiasis. Post-op diagnosis: Same. Procedure done: Laparoscopic cholecystectomy. Specimens removed/disposition: Gallbladder. Surgeon: General Surgery Tristan Menendez MD Anesthesia: General Estimated blood loss: 5 mL. Complications: None. Procedure: The patient was brought to the Operating Room and was placed in a supine position on the Operating Room table. General endotracheal anesthesia was induced. The abdomen was prepped and draped in a sterile fashion. A small vertical incision was carried out in the inferior aspect of the umbilicus. Blunt dissection was carried out down to the fascia, which was grasped with a Nadiya clamp. A stay suture of 0 Vicryl was placed on either side of the midline and the midline fascia was incised. The underlying peritoneum was opened bluntly and the Cee port was placed directly into the peritoneal cavity and was held in place with the inflatable balloon. The peritoneal cavity was insufflated with carbon dioxide. The laparoscope was used to inspect the abdominal cavity. No gross abnormalities were noted. A 5 millimeter port was placed in the epigastrium under direct vision. Two 5-millimeter ports were placed on the right side of the abdomen under direct vision. The gallbladder was grasped and was elevated. Blunt dissection and hydrodissection were carried out in the infundibular region of the gallbladder and the cystic duct and cystic artery were identified. The gallbladder was partially removed from the liver bed using cautery and the s patula to confirm the anatomy before the structures were clipped and divided. The gallbladder was then removed from the liver bed using cautery and the spatula. After the gallbladder had been removed from the liver bed, the laparoscope was moved to the epigastric port and the gallbladder was removed from the peritoneal cavity through the umbilical port site. The stay sutures of Vicryl were tied to each other at the umbilicus, closing the defect so that it was airtight. The perihepatic spaces were irrigated with saline and the liver bed was reinspected. No ongoing problems were seen. The remaining ports were removed from the abdominal wall and the pneumoperitoneum was evacuated. All skin incisions were closed using inverted interrupted sutures of 4-0 Vicryl. Benzoin and Steri-Strips were placed over the incisions and Band-Aids followed. The patient was taken to the Recovery Area in stable condition postoperatively.
[2021-09-11] MEDS: fentaNYL 50 mcg/mL INJ 2mL IVP (08:02)
[2021-09-11] MEDS: hyDRALAzine 20 mg/mL INJ 1 mL 5 MG IVP (08:23)
[2021-09-11] MEDS: HYDROcodone-acetaminophen 5-325 mg Tablet 1 TAB PO (09:08)
--- NOTE | 2021-09-11 12:52 | ANE.PACU2 ---
Inpatient post-anesthesia follow up: Airway intact: Yes Vital signs: Temperature 97.3 F Pulse Rate 70 Respiratory Rate 18 Blood Pressure 157/98 Pulse Oximetry 96 Oxygen Delivery Me thod Room Air Oxygen Flow Rate 6 Fraction of Inspir ed Oxygen Hydration adequate: Yes Nausea and vomiting: No Pain level: 1 Mental status: Baseline
== END 2021-09-11 09:33 | disposition home or self-care (01) ==
PROVIDERS: Visit Provider Surgery
PROC: 0FT44ZZ Resection of Gallbladder, Percutaneous Endoscopic Approach (ICD-10-PCS; CPT 47562; principal; 2021-09-11 07:00)
DX: K80.10 Calculus of gallbladder with chronic cholecystitis without obstruction (principal); I48.91 Unspecified atrial fibrillation; I25.10 Atherosclerotic heart disease of native coronary artery without angina pectoris; Z95.5 Presence of coronary angioplasty implant and graft; I10 Essential (primary) hypertension; Z95.1 Presence of aortocoronary bypass graft; K21.9 Gastro-esophageal reflux disease without esophagitis; E78.5 Hyperlipidemia, unspecified
CPT/HCPCS: 47562; 36415; 80076; 88304; J0360; J1100; J2370; J2405; J2704; J2710; J3010; J3490; J7030

== ENCOUNTER → 2021-10-23 10:17 | Outpatient (BNVA) | payer OTHER, SELFPAY | PROVIDERS: Visit Provider Physician Assistant | DX: S42.021D Displaced fracture of shaft of right clavicle, subsequent encounter for fracture with routine healing (principal); X58.XXXD Exposure to other specified factors, subsequent encounter | CPT/HCPCS: 73060 ==